=== PATIENT | female | born 1965 | race African-American/Black ===

== ENCOUNTER 2020-02-16 10:53 | Inpatient (IN) | payer OTHER ==
[2020-02-16] MEDS ORDERED: PNEUMOC 13-VAL CONJ-DIP CRM/PF 0.5 ML DISP.SYRIN IM ONE (12:19)
[2020-02-16] MEDS ORDERED: LOPERAMIDE HCL 2 MG CAPSULE PO PRN (12:35)
[2020-02-16] MEDS ORDERED: ACETAMINOPHEN 325 MG TABLET (FP) PO PRN (12:35)
[2020-02-16] MEDS ORDERED: guaiFENesin 200 MG/10 ML 10 ML UNIT-DOSE CUPS PO PRN (12:35)
[2020-02-16] MEDS ORDERED: MAGNESIUM CITRATE 300 ML BOTTLE PO PRN (12:35)
[2020-02-16] MEDS ORDERED: hydrOXYzine PAMOATE 25 MG CAPSULE (FP) PO PRN (12:35)
[2020-02-16] MEDS ORDERED: P-EPHED 60MG/TRIPROLIDI 2.5MG TABLET PO PRN (12:35)
[2020-02-16] MEDS ORDERED: MENTHOL/PHENOL 1 EACH UD MM PRN (12:35)
[2020-02-16] MEDS ORDERED: MAGNESIUM HYDROX 2400MG/30ML ORAL SUSPENSION 30 ML CUP PO PRN (12:35)
[2020-02-16] MEDS: METHOCARBAMOL 500 MG TABLET PO SCH ×3 (15:00→21:37)
[2020-02-16] MEDS ORDERED: INSULIN (NOVOLOG) ASPART 100 UNITS/ML 10ML VIAL ONE (16:31)
[2020-02-16] MEDS: INSULIN SLIDING SCALE (NOVOLOG) 1 VIAL SQ SCH (16:48)
[2020-02-16] MEDS: MELATONIN 5 MG TABLETS PO SCH (21:36)
[2020-02-16] MEDS: FLUTICASONE PROP 0.05% 16 GM NASAL SPRAY NS SCH (21:36)
[2020-02-16] MEDS: THIAMINE HCL 100 MG TABLET (FP) PO SCH (21:36)
[2020-02-16] MEDS: traZODone HCL 50 MG TABLET (FP) PO SCH (21:38)
[2020-02-17] MEDS: METHADONE HCL 10 MG TABLET PO SCH (07:05)
[2020-02-17] MEDS: INSULIN SLIDING SCALE (NOVOLOG) 1 VIAL SQ SCH ×2 (07:06→16:46)
[2020-02-17] MEDS: metFORMIN HCL 500 MG TABLET (FP) PO SCH (07:06)
[2020-02-17] MEDS: NICOTINE POLACRILEX 2 MG GUM BUC PRN (09:07)
[2020-02-17] MEDS: PANTOPRAZOLE 20 MG TABLET PO SCH (10:08)
[2020-02-17] MEDS: FLUTICASONE PROP 0.05% 16 GM NASAL SPRAY NS SCH ×2 (10:08→21:36)
[2020-02-17] MEDS: PRENATAL VITAMINS W/ FOLIC ACID TABLET (FP) PO SCH (10:08)
[2020-02-17] MEDS: NICOTINE 14 MG/24 HOURS TOPICAL PATCH TD SCH (10:09)
[2020-02-17] MEDS: CARVEDILOL 6.25 MG TABLET (FP) PO SCH (10:09)
[2020-02-17] MEDS: amLODIPine BESYLATE 5 MG TABLET (FP) PO SCH (10:09)
[2020-02-17] MEDS: METHOCARBAMOL 500 MG TABLET PO SCH ×4 (10:09→21:36)
[2020-02-17] MEDS: PETROLATUM, WHITE 30 GM TUBE TP SCH (10:11)
[2020-02-17] MEDS ORDERED: METHADONE HCL 10 MG TABLET PO ONE (11:30)
[2020-02-17] MEDS ORDERED: FLU VACCINE (FLULAVAL) PF 60 MCG/0.5 ML SYRINGE 2020-2021 IM ONE (12:00)
[2020-02-17] MEDS ORDERED: PNEUMOCOCCAL 23 VACCINE 0.5 ML VIAL IM ONE (12:00)
[2020-02-17] MEDS ORDERED: INSULIN (NOVOLOG) ASPART 100 UNITS/ML 10ML VIAL ONE (16:39)
[2020-02-17] MEDS: traZODone HCL 50 MG TABLET (FP) PO SCH (21:36)
[2020-02-17] MEDS: MELATONIN 5 MG TABLETS PO SCH (21:36)
[2020-02-17] MEDS: THIAMINE HCL 100 MG TABLET (FP) PO SCH (21:37)
[2020-02-18] MEDS: metFORMIN HCL 500 MG TABLET (FP) PO SCH (07:06)
[2020-02-18] MEDS: INSULIN SLIDING SCALE (NOVOLOG) 1 VIAL SQ SCH ×2 (07:06→16:50)
[2020-02-18] MEDS: METHADONE HCL 10 MG TABLET PO SCH (08:18)
[2020-02-18] MEDS ORDERED: PT OWN MED DRAWER 7, Y5N ONE ×2 (09:12→22:00)
[2020-02-18] MEDS: PRENATAL VITAMINS W/ FOLIC ACID TABLET (FP) PO SCH (10:22)
[2020-02-18] MEDS: PANTOPRAZOLE 20 MG TABLET PO SCH (10:22)
[2020-02-18] MEDS: METHOCARBAMOL 500 MG TABLET PO SCH ×4 (10:22→21:55)
[2020-02-18] MEDS: FLUTICASONE PROP 0.05% 16 GM NASAL SPRAY NS SCH ×2 (10:22→22:01)
[2020-02-18] MEDS: CARVEDILOL 6.25 MG TABLET (FP) PO SCH (10:23)
[2020-02-18] MEDS: NICOTINE 14 MG/24 HOURS TOPICAL PATCH TD SCH (10:23)
[2020-02-18] MEDS: PETROLATUM, WHITE 30 GM TUBE TP SCH (10:24)
[2020-02-18] MEDS: amLODIPine BESYLATE 5 MG TABLET (FP) PO SCH (10:24)
[2020-02-18] MEDS: NICOTINE POLACRILEX 2 MG GUM BUC PRN ×3 (10:25→22:04)
[2020-02-18] MEDS: THIAMINE HCL 100 MG TABLET (FP) PO SCH (21:55)
[2020-02-18] MEDS: traZODone HCL 50 MG TABLET (FP) PO SCH (21:55)
[2020-02-18] MEDS: MELATONIN 5 MG TABLETS PO SCH (22:01)
[2020-02-19] MEDS: metFORMIN HCL 500 MG TABLET (FP) PO SCH (07:06)
[2020-02-19] MEDS: INSULIN SLIDING SCALE (NOVOLOG) 1 VIAL SQ SCH ×2 (07:10→17:03)
[2020-02-19] MEDS: METHADONE HCL 10 MG TABLET PO SCH (07:18)
[2020-02-19] MEDS: NICOTINE POLACRILEX 2 MG GUM BUC PRN ×2 (07:49→10:13)
[2020-02-19] MEDS ORDERED: PT OWN MED DRAWER 7, Y5N ONE (08:52)
[2020-02-19] MEDS: METHOCARBAMOL 500 MG TABLET PO SCH ×4 (09:45→21:40)
[2020-02-19] MEDS: PETROLATUM, WHITE 30 GM TUBE TP SCH (09:45)
[2020-02-19] MEDS: PANTOPRAZOLE 20 MG TABLET PO SCH (09:45)
[2020-02-19] MEDS: PRENATAL VITAMINS W/ FOLIC ACID TABLET (FP) PO SCH (09:45)
[2020-02-19] MEDS: FLUTICASONE PROP 0.05% 16 GM NASAL SPRAY NS SCH ×2 (09:46→21:39)
[2020-02-19] MEDS: amLODIPine BESYLATE 5 MG TABLET (FP) PO SCH (09:46)
[2020-02-19] MEDS: NICOTINE 14 MG/24 HOURS TOPICAL PATCH TD SCH (09:46)
[2020-02-19] MEDS: CARVEDILOL 6.25 MG TABLET (FP) PO SCH (09:46)
[2020-02-19] MEDS: traZODone HCL 50 MG TABLET (FP) PO SCH (21:39)
[2020-02-19] MEDS: MELATONIN 5 MG TABLETS PO SCH (21:40)
[2020-02-19] MEDS: THIAMINE HCL 100 MG TABLET (FP) PO SCH (21:40)
[2020-02-20] MEDS: METHADONE HCL 10 MG TABLET PO SCH (06:51)
[2020-02-20] MEDS: metFORMIN HCL 500 MG TABLET (FP) PO SCH (06:53)
[2020-02-20] MEDS: INSULIN SLIDING SCALE (NOVOLOG) 1 VIAL SQ SCH ×2 (06:53→17:02)
[2020-02-20] MEDS: NICOTINE POLACRILEX 2 MG GUM BUC PRN ×3 (06:58→13:46)
[2020-02-20] MEDS: FLUTICASONE PROP 0.05% 16 GM NASAL SPRAY NS SCH ×2 (09:55→21:37)
[2020-02-20] MEDS: PANTOPRAZOLE 20 MG TABLET PO SCH (09:56)
[2020-02-20] MEDS: amLODIPine BESYLATE 5 MG TABLET (FP) PO SCH (09:56)
[2020-02-20] MEDS: METHOCARBAMOL 500 MG TABLET PO SCH ×4 (09:58→21:38)
[2020-02-20] MEDS: PRENATAL VITAMINS W/ FOLIC ACID TABLET (FP) PO SCH (09:58)
[2020-02-20] MEDS: NICOTINE 14 MG/24 HOURS TOPICAL PATCH TD SCH (09:59)
[2020-02-20] MEDS: CARVEDILOL 6.25 MG TABLET (FP) PO SCH (09:59)
[2020-02-20] MEDS: PETROLATUM, WHITE 30 GM TUBE TP SCH (10:01)
[2020-02-20] MEDS ORDERED: MASKS NR ONE (17:10)
[2020-02-20] MEDS: MELATONIN 5 MG TABLETS PO SCH (21:36)
[2020-02-20] MEDS: THIAMINE HCL 100 MG TABLET (FP) PO SCH (21:36)
[2020-02-20] MEDS: traZODone HCL 50 MG TABLET (FP) PO SCH (21:37)
[2020-02-21] MEDS: INSULIN SLIDING SCALE (NOVOLOG) 1 VIAL SQ SCH ×2 (06:39→16:54)
[2020-02-21] MEDS: metFORMIN HCL 500 MG TABLET (FP) PO SCH (06:39)
[2020-02-21] MEDS: METHADONE HCL 10 MG TABLET PO SCH (06:41)
[2020-02-21] MEDS: NICOTINE POLACRILEX 2 MG GUM BUC PRN ×4 (06:42→18:21)
[2020-02-21] MEDS ORDERED: PT OWN MED DRAWER 7, Y5N ONE (08:41)
[2020-02-21] MEDS: amLODIPine BESYLATE 5 MG TABLET (FP) PO SCH (09:35)
[2020-02-21] MEDS: PRENATAL VITAMINS W/ FOLIC ACID TABLET (FP) PO SCH (09:35)
[2020-02-21] MEDS: METHOCARBAMOL 500 MG TABLET PO SCH ×4 (09:35→21:27)
[2020-02-21] MEDS: PANTOPRAZOLE 20 MG TABLET PO SCH (09:35)
[2020-02-21] MEDS: CARVEDILOL 6.25 MG TABLET (FP) PO SCH (09:35)
[2020-02-21] MEDS: PETROLATUM, WHITE 30 GM TUBE TP SCH (09:36)
[2020-02-21] MEDS: NICOTINE 14 MG/24 HOURS TOPICAL PATCH TD SCH (09:36)
[2020-02-21] MEDS: FLUTICASONE PROP 0.05% 16 GM NASAL SPRAY NS SCH ×2 (09:36→21:27)
[2020-02-21] MEDS: THIAMINE HCL 100 MG TABLET (FP) PO SCH (21:27)
[2020-02-21] MEDS: MELATONIN 5 MG TABLETS PO SCH (21:27)
[2020-02-21] MEDS: traZODone HCL 50 MG TABLET (FP) PO SCH (21:28)
[2020-02-22] MEDS: NICOTINE POLACRILEX 2 MG GUM BUC PRN ×3 (01:39→09:59)
[2020-02-22] MEDS: METHADONE HCL 10 MG TABLET PO SCH (06:55)
[2020-02-22] MEDS: INSULIN SLIDING SCALE (NOVOLOG) 1 VIAL SQ SCH ×2 (06:56→16:45)
[2020-02-22] MEDS: metFORMIN HCL 500 MG TABLET (FP) PO SCH (06:56)
[2020-02-22] MEDS ORDERED: PT OWN MED DRAWER 7, Y5N ONE ×3 (09:01→19:14)
[2020-02-22] MEDS: PANTOPRAZOLE 20 MG TABLET PO SCH (09:57)
[2020-02-22] MEDS: FLUTICASONE PROP 0.05% 16 GM NASAL SPRAY NS SCH ×2 (09:57→21:35)
[2020-02-22] MEDS: amLODIPine BESYLATE 5 MG TABLET (FP) PO SCH (09:57)
[2020-02-22] MEDS: METHOCARBAMOL 500 MG TABLET PO SCH (09:57)
[2020-02-22] MEDS: NICOTINE 14 MG/24 HOURS TOPICAL PATCH TD SCH (09:57)
[2020-02-22] MEDS: PRENATAL VITAMINS W/ FOLIC ACID TABLET (FP) PO SCH (09:57)
[2020-02-22] MEDS: CARVEDILOL 6.25 MG TABLET (FP) PO SCH (09:57)
[2020-02-22] MEDS: PETROLATUM, WHITE 30 GM TUBE TP SCH (12:04)
[2020-02-22] MEDS: NICOTINE POLACRILEX 4 MG GUM BUC PRN ×3 (12:47→21:35)
[2020-02-22] MEDS: MELATONIN 5 MG TABLETS PO SCH (21:33)
[2020-02-22] MEDS: traZODone HCL 50 MG TABLET (FP) PO SCH (21:33)
[2020-02-22] MEDS: THIAMINE HCL 100 MG TABLET (FP) PO SCH (21:33)
[2020-02-23] MEDS ORDERED: METHADONE HCL 10 MG TABLET PO SCH (06:00)
[2020-02-23] MEDS: METHADONE HCL 10 MG TABLET PO SCH (07:03)
[2020-02-23] MEDS: INSULIN SLIDING SCALE (NOVOLOG) 1 VIAL SQ SCH ×2 (07:03→16:32)
[2020-02-23] MEDS: metFORMIN HCL 500 MG TABLET (FP) PO SCH (07:03)
[2020-02-23] MEDS: NICOTINE POLACRILEX 4 MG GUM BUC PRN ×4 (07:04→16:32)
[2020-02-23] MEDS: FLUTICASONE PROP 0.05% 16 GM NASAL SPRAY NS SCH ×2 (09:29→21:08)
[2020-02-23] MEDS: amLODIPine BESYLATE 5 MG TABLET (FP) PO SCH (09:29)
[2020-02-23] MEDS: PETROLATUM, WHITE 30 GM TUBE TP SCH (09:29)
[2020-02-23] MEDS: NICOTINE 14 MG/24 HOURS TOPICAL PATCH TD SCH (09:30)
[2020-02-23] MEDS: PANTOPRAZOLE 20 MG TABLET PO SCH (09:31)
[2020-02-23] MEDS: PRENATAL VITAMINS W/ FOLIC ACID TABLET (FP) PO SCH (09:31)
[2020-02-23] MEDS: CARVEDILOL 6.25 MG TABLET (FP) PO SCH (09:31)
[2020-02-23] MEDS: THIAMINE HCL 100 MG TABLET (FP) PO SCH (21:06)
[2020-02-23] MEDS: MELATONIN 5 MG TABLETS PO SCH (21:07)
[2020-02-23] MEDS: traZODone HCL 50 MG TABLET (FP) PO SCH (21:08)
[2020-02-24] MEDS: METHADONE HCL 10 MG TABLET PO SCH (06:43)
[2020-02-24] MEDS: metFORMIN HCL 500 MG TABLET (FP) PO SCH (06:46)
[2020-02-24] MEDS: INSULIN SLIDING SCALE (NOVOLOG) 1 VIAL SQ SCH ×2 (06:46→16:49)
[2020-02-24] MEDS ORDERED: PT OWN MED DRAWER 7, Y5N ONE ×3 (08:55→10:58)
[2020-02-24] MEDS: CARVEDILOL 6.25 MG TABLET (FP) PO SCH (09:53)
[2020-02-24] MEDS: FLUTICASONE PROP 0.05% 16 GM NASAL SPRAY NS SCH ×2 (09:53→21:17)
[2020-02-24] MEDS: PRENATAL VITAMINS W/ FOLIC ACID TABLET (FP) PO SCH (09:54)
[2020-02-24] MEDS: NICOTINE 14 MG/24 HOURS TOPICAL PATCH TD SCH (09:54)
[2020-02-24] MEDS: PETROLATUM, WHITE 30 GM TUBE TP SCH (09:54)
[2020-02-24] MEDS: amLODIPine BESYLATE 5 MG TABLET (FP) PO SCH (09:54)
[2020-02-24] MEDS: PANTOPRAZOLE 20 MG TABLET PO SCH (09:54)
[2020-02-24] MEDS: NICOTINE POLACRILEX 4 MG GUM BUC PRN ×2 (09:55→13:29)
[2020-02-24] MEDS: THIAMINE HCL 100 MG TABLET (FP) PO SCH (21:16)
[2020-02-24] MEDS: MELATONIN 5 MG TABLETS PO SCH (21:16)
[2020-02-24] MEDS: traZODone HCL 50 MG TABLET (FP) PO SCH (21:16)
[2020-02-24] MEDS ORDERED: MASKS NR ONE (21:18)
[2020-02-24] MEDS ORDERED: INSULIN (NOVOLOG) ASPART 100 UNITS/ML 10ML VIAL ONE (21:38)
[2020-02-25] MEDS: METHADONE HCL 10 MG TABLET PO SCH (06:59)
[2020-02-25] MEDS: INSULIN SLIDING SCALE (NOVOLOG) 1 VIAL SQ SCH ×2 (07:01→16:34)
[2020-02-25] MEDS: metFORMIN HCL 500 MG TABLET (FP) PO SCH (07:01)
[2020-02-25] MEDS: PRENATAL VITAMINS W/ FOLIC ACID TABLET (FP) PO SCH (09:44)
[2020-02-25] MEDS: amLODIPine BESYLATE 5 MG TABLET (FP) PO SCH (09:44)
[2020-02-25] MEDS: NICOTINE 14 MG/24 HOURS TOPICAL PATCH TD SCH (09:44)
[2020-02-25] MEDS: PANTOPRAZOLE 20 MG TABLET PO SCH (09:44)
[2020-02-25] MEDS: CARVEDILOL 6.25 MG TABLET (FP) PO SCH (09:44)
[2020-02-25] MEDS: PETROLATUM, WHITE 30 GM TUBE TP SCH (09:44)
[2020-02-25] MEDS: FLUTICASONE PROP 0.05% 16 GM NASAL SPRAY NS SCH ×2 (09:46→21:31)
[2020-02-25] MEDS: NICOTINE POLACRILEX 4 MG GUM BUC PRN ×2 (09:48→12:56)
[2020-02-25] MEDS ORDERED: MASKS NR ONE (19:54)
[2020-02-25] MEDS: MELATONIN 5 MG TABLETS PO SCH (21:30)
[2020-02-25] MEDS: THIAMINE HCL 100 MG TABLET (FP) PO SCH (21:30)
[2020-02-25] MEDS: traZODone HCL 50 MG TABLET (FP) PO SCH (21:31)
[2020-02-26] MEDS: INSULIN SLIDING SCALE (NOVOLOG) 1 VIAL SQ SCH ×2 (06:51→16:45)
[2020-02-26] MEDS: metFORMIN HCL 500 MG TABLET (FP) PO SCH (06:51)
[2020-02-26] MEDS: METHADONE HCL 10 MG TABLET PO SCH (06:52)
[2020-02-26] MEDS: PANTOPRAZOLE 20 MG TABLET PO SCH (09:38)
[2020-02-26] MEDS: amLODIPine BESYLATE 5 MG TABLET (FP) PO SCH (09:38)
[2020-02-26] MEDS: PRENATAL VITAMINS W/ FOLIC ACID TABLET (FP) PO SCH (09:38)
[2020-02-26] MEDS: FLUTICASONE PROP 0.05% 16 GM NASAL SPRAY NS SCH ×2 (09:38→21:02)
[2020-02-26] MEDS: CARVEDILOL 6.25 MG TABLET (FP) PO SCH (09:38)
[2020-02-26] MEDS: NICOTINE POLACRILEX 4 MG GUM BUC PRN ×4 (09:39→21:08)
[2020-02-26] MEDS: NICOTINE 14 MG/24 HOURS TOPICAL PATCH TD SCH (09:39)
[2020-02-26] MEDS: IBUPROFEN 400 MG TABLET (FP) PO PRN (14:50)
[2020-02-26] MEDS ORDERED: PT OWN MED DRAWER 7, Y5N ONE (19:16)
[2020-02-26] MEDS: traZODone HCL 50 MG TABLET (FP) PO SCH (21:03)
[2020-02-26] MEDS: MELATONIN 5 MG TABLETS PO SCH (21:03)
[2020-02-26] MEDS: THIAMINE HCL 100 MG TABLET (FP) PO SCH (21:04)
[2020-02-26] MEDS: METHOCARBAMOL 500 MG TABLET PO PRN (21:06)
[2020-02-27] MEDS: METHADONE HCL 10 MG TABLET PO SCH (06:56)
[2020-02-27] MEDS: INSULIN SLIDING SCALE (NOVOLOG) 1 VIAL SQ SCH ×2 (06:57→16:33)
[2020-02-27] MEDS: metFORMIN HCL 500 MG TABLET (FP) PO SCH (06:57)
[2020-02-27] MEDS: FLUTICASONE PROP 0.05% 16 GM NASAL SPRAY NS SCH ×2 (10:02→21:27)
[2020-02-27] MEDS: NICOTINE 14 MG/24 HOURS TOPICAL PATCH TD SCH (10:02)
[2020-02-27] MEDS: amLODIPine BESYLATE 5 MG TABLET (FP) PO SCH (10:02)
[2020-02-27] MEDS: PANTOPRAZOLE 20 MG TABLET PO SCH (10:02)
[2020-02-27] MEDS: CARVEDILOL 6.25 MG TABLET (FP) PO SCH (10:02)
[2020-02-27] MEDS: PRENATAL VITAMINS W/ FOLIC ACID TABLET (FP) PO SCH (10:02)
[2020-02-27] MEDS: NICOTINE POLACRILEX 4 MG GUM BUC PRN ×4 (10:05→21:29)
[2020-02-27] MEDS: METHOCARBAMOL 500 MG TABLET PO PRN (18:08)
[2020-02-27] MEDS: IBUPROFEN 400 MG TABLET (FP) PO PRN (18:08)
[2020-02-27] MEDS: traZODone HCL 50 MG TABLET (FP) PO SCH (21:27)
[2020-02-27] MEDS: MELATONIN 5 MG TABLETS PO SCH (21:28)
[2020-02-27] MEDS: THIAMINE HCL 100 MG TABLET (FP) PO SCH (21:28)
[2020-02-28] MEDS: metFORMIN HCL 500 MG TABLET (FP) PO SCH (07:12)
[2020-02-28] MEDS: METHADONE HCL 10 MG TABLET PO SCH (07:12)
[2020-02-28] MEDS: INSULIN SLIDING SCALE (NOVOLOG) 1 VIAL SQ SCH ×2 (07:12→16:45)
[2020-02-28] MEDS: NICOTINE POLACRILEX 4 MG GUM BUC PRN ×3 (07:13→12:52)
[2020-02-28] MEDS: NICOTINE 14 MG/24 HOURS TOPICAL PATCH TD SCH (09:55)
[2020-02-28] MEDS: amLODIPine BESYLATE 5 MG TABLET (FP) PO SCH (09:55)
[2020-02-28] MEDS: CARVEDILOL 6.25 MG TABLET (FP) PO SCH (09:55)
[2020-02-28] MEDS: PRENATAL VITAMINS W/ FOLIC ACID TABLET (FP) PO SCH (09:55)
[2020-02-28] MEDS: PANTOPRAZOLE 20 MG TABLET PO SCH (09:55)
[2020-02-28] MEDS: FLUTICASONE PROP 0.05% 16 GM NASAL SPRAY NS SCH ×2 (10:14→21:12)
[2020-02-28] MEDS ORDERED: PNEUMOC 13-VAL CONJ-DIP CRM/PF 0.5 ML DISP.SYRIN IM ONE (10:51)
[2020-02-28] MEDS ORDERED: FLU VACCINE (FLULAVAL) PF 60 MCG/0.5 ML SYRINGE 2020-2021 IM ONE (12:00)
[2020-02-28] MEDS ORDERED: PNEUMOCOCCAL 23 VACCINE 0.5 ML VIAL IM ONE (12:00)
[2020-02-28] MEDS: THIAMINE HCL 100 MG TABLET (FP) PO SCH (21:11)
[2020-02-28] MEDS: MELATONIN 5 MG TABLETS PO SCH (21:11)
[2020-02-28] MEDS: traZODone HCL 50 MG TABLET (FP) PO SCH (21:12)
[2020-02-28] MEDS ORDERED: INSULIN (NOVOLOG) ASPART 100 UNITS/ML 10ML VIAL ONE (21:59)
[2020-02-29] MEDS: METHADONE HCL 10 MG TABLET PO SCH (07:02)
[2020-02-29] MEDS: metFORMIN HCL 500 MG TABLET (FP) PO SCH (07:04)
[2020-02-29] MEDS: INSULIN SLIDING SCALE (NOVOLOG) 1 VIAL SQ SCH ×2 (07:04→16:49)
[2020-02-29] MEDS: NICOTINE POLACRILEX 4 MG GUM BUC PRN ×3 (07:08→15:26)
[2020-02-29] MEDS ORDERED: PT OWN MED DRAWER 7, Y5N ONE ×3 (09:24→15:25)
[2020-02-29] MEDS: amLODIPine BESYLATE 5 MG TABLET (FP) PO SCH (10:14)
[2020-02-29] MEDS: CARVEDILOL 6.25 MG TABLET (FP) PO SCH (10:14)
[2020-02-29] MEDS: PANTOPRAZOLE 20 MG TABLET PO SCH (10:14)
[2020-02-29] MEDS: PRENATAL VITAMINS W/ FOLIC ACID TABLET (FP) PO SCH (10:14)
[2020-02-29] MEDS: NICOTINE 14 MG/24 HOURS TOPICAL PATCH TD SCH (10:14)
[2020-02-29] MEDS: FLUTICASONE PROP 0.05% 16 GM NASAL SPRAY NS SCH ×2 (10:17→21:40)
[2020-02-29] MEDS: VITAMINS A AND D TOPICAL OINTMENT 60 GM TUBE TP SCH (11:10)
[2020-02-29] MEDS: MAG HYDROX/AL HYDROX/SIMETH 30 ML UNIT-DOSE CUP PO PRN ×2 (15:25→21:41)
[2020-02-29] MEDS: MELATONIN 5 MG TABLETS PO SCH (21:39)
[2020-02-29] MEDS: THIAMINE HCL 100 MG TABLET (FP) PO SCH (21:39)
[2020-02-29] MEDS: traZODone HCL 50 MG TABLET (FP) PO SCH (21:39)
[2020-03-01] MEDS: NICOTINE POLACRILEX 4 MG GUM BUC PRN ×2 (02:41→06:58)
[2020-03-01] MEDS: metFORMIN HCL 500 MG TABLET (FP) PO SCH (06:56)
[2020-03-01] MEDS: INSULIN SLIDING SCALE (NOVOLOG) 1 VIAL SQ SCH (06:57)
[2020-03-01] MEDS: METHADONE HCL 10 MG TABLET PO SCH (06:57)
[2020-03-01 07:06] VITALS: TEMP 97.7
[2020-03-01] MEDS: amLODIPine BESYLATE 5 MG TABLET (FP) PO SCH (09:05)
[2020-03-01] MEDS: CARVEDILOL 6.25 MG TABLET (FP) PO SCH (09:05)
[2020-03-01] MEDS: FLUTICASONE PROP 0.05% 16 GM NASAL SPRAY NS SCH (09:05)
[2020-03-01] MEDS: PANTOPRAZOLE 20 MG TABLET PO SCH (09:05)
[2020-03-01] MEDS: VITAMINS A AND D TOPICAL OINTMENT 60 GM TUBE TP SCH (09:06)
[2020-03-01] MEDS: NICOTINE 14 MG/24 HOURS TOPICAL PATCH TD SCH (09:06)
[2020-03-01] MEDS: PRENATAL VITAMINS W/ FOLIC ACID TABLET (FP) PO SCH (09:06)
[2020-03-01 09:11] VITALS: BP 130/81; PULSE 68
== END 2020-03-01 09:25 | disposition home or self-care (01) | DRG 772 ==
LOC: YASAS 10:53 → Y3E 10:56
PROVIDERS: ADMIT Allergy & Immunology; ATTEND Allergy & Immunology
PROC: HZ42ZZZ Group Counseling for Substance Abuse Treatment, Cognitive-Behavioral (ICD-10-PCS; principal; 2020-02-16)
DX: F10.20 Alcohol dependence, uncomplicated (principal); F14.20 Cocaine dependence, uncomplicated; F11.20 Opioid dependence, uncomplicated; F12.20 Cannabis dependence, uncomplicated; F17.210 Nicotine dependence, cigarettes, uncomplicated; F19.24 Other psychoactive substance dependence with psychoactive substance-induced mood disorder; F32.9 Major depressive disorder, single episode, unspecified; G47.00 Insomnia, unspecified; I10 Essential (primary) hypertension; I25.2 Old myocardial infarction; I69.854 Hemiplegia and hemiparesis following other cerebrovascular disease affecting left non-dominant side; I69.898 Other sequelae of other cerebrovascular disease; R26.89 Other abnormalities of gait and mobility; E11.9 Type 2 diabetes mellitus without complications; Z79.84 Long term (current) use of oral hypoglycemic drugs; Z87.820 Personal history of traumatic brain injury; Z91.81 History of falling; Z99.89 Dependence on other enabling machines and devices; R29.6 Repeated falls; Z56.0 Unemployment, unspecified; Z59.0 Homelessness; Z91.14 Patient's other noncompliance with medication regimen; S09.90XA Unspecified injury of head, initial encounter; W18.39XA Other fall on same level, initial encounter; Y93.89 Activity, other specified; Y92.231 Patient bathroom in hospital as the place of occurrence of the external cause; Y99.8 Other external cause status
CPT/HCPCS: 36415; 82962; 87389; G0008; Q2036

== ENCOUNTER 2020-02-16 23:54 | Emergency (ER) | payer OTHER ==
[2020-02-17 00:10] VITALS: TEMP 97.3; BMI 24.2
--- OUTSIDE RECORDS SUMMARY | 2020-02-17 00:14 | XMS ---
:1965 Author Organization [facility] Support Name Relationship Address Phone UE, UNEMPLOYED Unavailable Unavailable Unavailable UE Unavailable Unavailable Unavailable SARAH CHRIS SELF / SAME PATIENT HOMELESS [place] [id number] SARAH CHRIS Self [place] [address] Re-disclosure Warning The records that you are about to access may contain information from federally- assisted alcohol or drug abuse programs. If such information is present, then the following federally mandated warning applies: This information has been disclosed to you from records protected by federal confidentiality rules (42 CFR part 2). The federal rules prohibit you from making any further disclosure of this information unless further disclosure is expressly permitted by the written consent of the person to whom it pertains or as otherwise permitted by 42 CFR part 2. A general authorization for the release of medical or other information is NOT sufficient for this purpose. The Federal rules restrict any use of the information to criminally investigate or prosecute any alcohol or drug abuse patient.The records that you are about to access may contain highly sensitive health information, the redisclosure of which is protected by Article 27-F of the [facility] Public Health law. If you continue you may haveaccess to information: Regarding HIV / AIDS; Provided by facilities licensed or operated by the [facility] Office of Mental Health; or Provided by the [facility] Office for People With Developmental Disabilities. If such information is present, then the following [facility] mandated warning applies: This information has been disclosed to you from confidential records which are protected by state law. State law prohibits you from making any further disclosure of this information without the specific written consent of the person to whom it pertains, or as otherwise permitted by law. Any unauthorized further disclosure in violation of state law may result in a fine or detention sentence or both. A general authorization for the release of medical or other information is NOT sufficient authorization for further disclosure. Insurance Providers Payer name Policy type Policy ID Covered Covered democrat's Policy P nu / Coverage democrat ID relationship to [employer] type ferrari LISBETH [id number] HEALTH NON CAP Results ID Date Data Source [id number] 02/11/2020 06:20:00 PM EDT [facility] Name Value Range Interpretation Description Data Sup porting Code Source(s) Document(s ) SARS [facility] coronavirus 2 RNA This lab was ordered by [facility] ct [facility] and reported by [facility]. ID Date Data Source [id number] 12/23/2019 12:00:00 AM EDT [facility] Name Value Range Interpretation Code Description Data Quiana rce(s) Supporting Document(s ) 2019-nCoV [facility] RNA XXX LOLITA+probe- Imp This lab was ordered by [facility] and reported by [employer] Procedure
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
--- NOTE | 2020-02-17 01:56 | PDOC ---
History of Present Illness - General Chief Complaint: Head/Neck problem Stated Complaint: FALL Time Seen by Provider: 02/17/20 00:27 History Source: Patient - History of Present Illness Initial Comments: 54F w/hx CVA w/residual L sided deficits, HTN, DM, polysubstance use disorder (cocaine, alcohol) in detox BIBEMS from [facility] s/p unwitnessed fall in the bathroom. History limited by intoxication. She denies any drug or alcohol use today. Per detox center, she received trazodone and methadone today. She is admitted at the detox center. She denies any head or neck pain, reports low back pain. She reports neck stiffness. Past History - Medical History Allergies/Adverse Reactions: Allergies Allergy/AdvReac Type Severity Reaction Status Date / Time No Known Allergies Allergy Verified 02/11/20 17:19 Home Medications: Ambulatory Orders Amlodipine Besylate [Norvasc -] 5 mg PO DAILY 02/11/20 Carvedilol [Coreg -] 6.25 mg PO DAILY 02/11/20 Mirtazapine [Remeron -] 15 mg PO HS 02/11/20 Omeprazole 40 mg PO DAILY 02/11/20 metFORMIN HCL [Glucophage -] 500 mg PO DAILY 02/11/20 Methadone HCl [Dolophine HCl] 30 mg PO DAILY 02/16/20 Pantoprazole Sodium [Protonix -] 20 mg PO DAILY 02/16/20 Asthma: No Cardiac Disorders: No COPD: Yes Diabetes: Yes GI Disorders: No Disorders: No HTN: No Kidney Stones: No - Surgical History Abdominal Surgery: No Appendectomy: No Cardiac Surgery: No Cholecystectomy: No Lung Surgery: No Neurologic Surgery: No Orthopedic Surgery: No - Reproductive History PID: No - Psycho-Social/Smoking History Smoking History: Unknown if ever smoked Have you smoked in the past 12 months: Yes Number of Cigarettes Smoked Daily: 20 - Substance Abuse Hx (Audit-C & DAST Scrn) How often the patient has a drink containing alcohol: 2-3 times / week Number of drinks the patient has on a typical day: 5 or 6 How often the patient has six or more drinks on one occasion: Weekly Score: In Men: 4 or > Positive; In Women: 3 or > Positive: 8 Screen Result (Pos requires Nsg. Audit-10AR): Positive In the last yr the pt used illegal drug/Rx for NonMed reason: Yes Score: Yes response is considered Positive: 1 Screen Result (Positive result requires Nsg. DAST-10): Positive Review of Systems - Review of Systems Able to Perform ROS?: No (intox) *Physical Exam - Vital Signs Last Vital Signs Temp Pulse Resp BP Pulse Ox 97.3 F L 60 18 112/65 95 02/17/20 00:04 02/17/20 00:04 02/17/20 00:04 02/17/20 00:04 02/17/20 00:04 - Physical Exam 02/17/20 01:57 GENERAL/CONSTITUTIONAL: No fever or chills. No weakness. HEAD, EYES, EARS, NOSE AND THROAT: No change in vision. No ear pain or discharge. No sore throat. CARDIOVASCULAR: No chest pain or shortness of breath RESPIRATORY: No cough, wheezing, or hemoptysis. GASTROINTESTINAL: No nausea, vomiting, diarrhea or constipation. GENITOURINARY: No dysuria, frequency, or change in urination. MUSCULOSKELETAL: No joint or muscle swelling or pain. No neck or back pain. SKIN: No rash NEUROLOGIC: No headache, vertigo, loss of consciousness, or change in strength/sensation. ENDOCRINE: No increased thirst. No abnormal weight change HEMATOLOGIC/LYMPHATIC: No anemia, easy bleeding, or history of blood clots. ALLERGIC/IMMUNOLOGIC: No hives or skin allergy. Medical Decision Making - Medical Decision Making 54F w/hx residual L sided weakness s/p CVA, HTN, DM, polysubstance use disorder BIBEMS s/p fall in bath room after methadone, trazodone dose at detox. Ddx medication effect vs other intox. ICH possible although AMS more likely represents medication effect. Plan: CT Head CT cervical spine XR lumbar spine [facility] Dispo: Discharge pending imaging 02/17/20 01:50 On reassessment, no midline cervical tenderness, patient able to fully flex and extend and rotate head left and right without pain. Cervical collar removed. CT Head and CT cervical spine negative for acute process No fracture visualized on spinal XR Plan for discharge back to detox. Discussed with ELAN Aldana, plan for transport back to [facility]. Discharge - Discharge Information Problems reviewed: Yes Clinical Impression/Diagnosis: Fall Condition: Stable Disposition: HOME - Admission No - Follow up/Referral - Patient Discharge Instructions Patient Printed Discharge Instructions: How to Prevent Falls Additional Instructions: You were seen in the ER after a fall. Your CT scans and X-rays were normal. Follow up with your primary care provider as soon as possible, in the next 2-3 days. Return to the ER if you develop worsening headache, vision changes, or intractable vomiting. - Post Discharge Activity
[2020-02-17 03:40] VITALS: BP 104/70; PULSE 59
== END 2020-02-17 03:48 | disposition home or self-care (01) ==
LOC: JER 23:54
PROC: 3E0234Z Introduction of Serum, Toxoid and Vaccine into Muscle, Percutaneous Approach (ICD-10-PCS; principal; 2020-02-16)
DX: Z04.3 Encounter for examination and observation following other accident (principal)
CPT/HCPCS: 70450-TC; 72100-TC-FY; 72125-TC; 99284-25

== ENCOUNTER 2021-06-29 20:36 | Emergency (ER) | payer OTHER ==
[2021-06-29 20:43] VITALS: BP 153/97; PULSE 89; TEMP 98; BMI 20.9
[2021-06-29] MEDS ORDERED: IBUPROFEN 600 MG TABLET (FP) PO ONE ×2 (20:51→21:15)
== END 2021-06-29 22:45 | disposition home or self-care (01) ==
LOC: JERFT 20:36
DX: S93.491A Sprain of other ligament of right ankle, initial encounter (principal); X50.0XXA Overexertion from strenuous movement or load, initial encounter
CPT/HCPCS: 73610-TC-RT-FY; 73630-TC-RT-FY; 99283-25

== ENCOUNTER 2021-06-29 22:35 | Inpatient (IN) | payer OTHER ==
[2021-06-29 17:40] VITALS: BMI 20.9
[2021-06-29] MEDS ORDERED: LOPERAMIDE HCL 2 MG CAPSULE PO PRN (22:58)
[2021-06-29] MEDS ORDERED: MAG HYDROX/AL HYDROX/SIMETH 30 ML UNIT-DOSE CUP PO PRN (22:58)
[2021-06-29] MEDS ORDERED: MAGNESIUM HYDROX 2400MG/30ML ORAL SUSPENSION 30 ML CUP PO PRN (22:58)
[2021-06-29] MEDS ORDERED: ACETAMINOPHEN 325 MG TABLET (FP) PO PRN ×2 (22:58)
[2021-06-29] MEDS ORDERED: guaiFENesin 200 MG/10 ML 10 ML UNIT-DOSE CUPS PO PRN (22:58)
[2021-06-29] MEDS ORDERED: MENTHOL/PHENOL 1 EACH UD MM PRN (22:58)
[2021-06-29] MEDS ORDERED: ONDANSETRON *ODT* 4 MG TABLET SL PRN (22:58)
[2021-06-29] MEDS ORDERED: P-EPHED 60MG/TRIPROLIDI 2.5MG TABLET PO PRN (22:58)
[2021-06-29] MEDS ORDERED: MAGNESIUM CITRATE 300 ML BOTTLE PO PRN (22:58)
[2021-06-29] MEDS ORDERED: BISMUTH SUBSALICYLATE 524 MG/30 ML PO PRN (22:58)
[2021-06-29] MEDS ORDERED: methaDONE HCL 10 MG TABLET (FOR DETOX USE ONLY) PO ONE ×2 (23:02→23:15)
[2021-06-29] MEDS ORDERED: cloNIDine HCL 0.1 MG TABLET PO PRN (23:02)
[2021-06-29] MEDS ORDERED: methaDONE HCL 10 MG TABLET (FOR DETOX USE ONLY) ONE (23:59)
[2021-06-30] MEDS: MELATONIN 5 MG TABLETS PO PRN (00:03)
[2021-06-30] MEDS ORDERED: methaDONE HCL 10 MG TABLET (FOR DETOX USE ONLY) PO ONE (10:00)
[2021-06-30] MEDS ORDERED: amLODIPine BESYLATE 5 MG TABLET (FP) ONE (10:20)
[2021-06-30] MEDS ORDERED: methaDONE HCL 10 MG TABLET (FOR DETOX USE ONLY) ONE (10:20)
[2021-06-30] MEDS: amLODIPine BESYLATE 5 MG TABLET (FP) PO SCH (10:35)
[2021-06-30] MEDS: PRENATAL VITAMINS W/ FOLIC ACID TABLET (FP) PO SCH (10:35)
[2021-06-30 11:39] LABS: HEMATOCRIT 37.2 % (32.4-45.2); HEMOGLOBIN 12.3 GM/dL (10.7-15.3); MCH 24.2 pg (25.7-33.7); MEAN CELL VOLUME 73.2 fl (80-96); MEAN PLT VOLUME 8.3 fl (7.5-11.1); PLATELET COUNT 182 10^3/uL (134-434); RBC 5.09 M/mm3 (3.60-5.2); RDW 15.7 % (11.6-15.6); WHITE BLOOD COUNT 5.4 K/mm3 (4.0-10.0)
[2021-06-30 12:44] LABS: ALBUMIN 3.3 g/dl (3.4-5.0); BLOOD UREA NITROGEN 13.8 mg/dL (7-18); CALCIUM 9.1 mg/dL (8.5-10.1)
[2021-06-30 12:47] LABS: CREATININE 0.9 mg/dL (0.55-1.3)
[2021-06-30 12:48] LABS: TOT PROT 6.1 g/dl (6.4-8.2)
[2021-06-30] MEDS: NICOTINE POLACRILEX 2 MG GUM BUC PRN ×3 (12:51→22:28)
[2021-06-30 12:52] LABS: BILIRUBIN,TOTAL 0.5 mg/dL (0.2-1)
[2021-06-30] MEDS: hydrOXYzine PAMOATE 25 MG CAPSULE (FP) PO PRN ×3 (14:09→22:26)
[2021-06-30] MEDS: METHOCARBAMOL 500 MG TABLET PO PRN ×2 (14:09→22:26)
[2021-06-30] MEDS: diazePAM 5 MG TABLET PO PRN (18:15)
[2021-06-30] MEDS: THIAMINE HCL 100 MG TABLET (FP) PO SCH (22:26)
[2021-07-01] MEDS ORDERED: methaDONE HCL 10 MG TABLET (FOR DETOX USE ONLY) PO ONE (10:00)
[2021-07-01] MEDS: PRENATAL VITAMINS W/ FOLIC ACID TABLET (FP) PO SCH (10:36)
[2021-07-01] MEDS: hydrOXYzine PAMOATE 25 MG CAPSULE (FP) PO PRN ×3 (10:37→22:33)
[2021-07-01] MEDS: amLODIPine BESYLATE 5 MG TABLET (FP) PO SCH (10:37)
[2021-07-01] MEDS: METHOCARBAMOL 500 MG TABLET PO PRN (10:37)
[2021-07-01] MEDS: diazePAM 5 MG TABLET PO PRN ×3 (10:38→22:34)
[2021-07-01] MEDS: IBUPROFEN 400 MG TABLET (FP) PO PRN ×2 (10:39→18:02)
[2021-07-01] MEDS: NICOTINE POLACRILEX 2 MG GUM BUC PRN (10:43)
[2021-07-01] MEDS: MELATONIN 5 MG TABLETS PO PRN (22:34)
[2021-07-01] MEDS: THIAMINE HCL 100 MG TABLET (FP) PO SCH (22:34)
[2021-07-02] MEDS ORDERED: methaDONE HCL 10 MG TABLET (FOR DETOX USE ONLY) PO ONE (10:00)
[2021-07-02] MEDS: PRENATAL VITAMINS W/ FOLIC ACID TABLET (FP) PO SCH (10:42)
[2021-07-02] MEDS: amLODIPine BESYLATE 5 MG TABLET (FP) PO SCH (10:42)
[2021-07-02] MEDS: diazePAM 5 MG TABLET PO PRN (10:44)
[2021-07-02] MEDS ORDERED: NICOTINE 10 MG CARTRIDGE (INHALER) IH PRN (14:13)
[2021-07-02 17:45] VITALS: BP 129/77; PULSE 77; TEMP 97
[2021-07-04 08:07] LABS: SARS-CoV-2 NAA Not Detected (Not Detected)
== END 2021-07-02 18:56 | disposition other institution (70) | DRG 773 ==
LOC: YASAS 22:35 → Y6N 06-30 10:12
PROVIDERS: ADMIT Allergy & Immunology; ATTEND Allergy & Immunology
PROC: HZ2ZZZZ Detoxification Services for Substance Abuse Treatment (ICD-10-PCS; principal; 2021-06-30)
DX: F11.23 Opioid dependence with withdrawal (principal); F10.20 Alcohol dependence, uncomplicated; F14.20 Cocaine dependence, uncomplicated; F12.20 Cannabis dependence, uncomplicated; F17.210 Nicotine dependence, cigarettes, uncomplicated; F19.24 Other psychoactive substance dependence with psychoactive substance-induced mood disorder; F32.A Depression, unspecified; I25.10 Atherosclerotic heart disease of native coronary artery without angina pectoris; I10 Essential (primary) hypertension; I25.2 Old myocardial infarction; I69.854 Hemiplegia and hemiparesis following other cerebrovascular disease affecting left non-dominant side; K21.9 Gastro-esophageal reflux disease without esophagitis; J44.9 Chronic obstructive pulmonary disease, unspecified; D57.3 Sickle-cell trait; Z87.820 Personal history of traumatic brain injury; Z86.19 Personal history of other infectious and parasitic diseases; Z99.89 Dependence on other enabling machines and devices; Z91.14 Patient's other noncompliance with medication regimen; Z59.00 Homelessness unspecified
CPT/HCPCS: 36415; 80053; 82962; 85027; 86593; 86780; C9803-CS; U0003; U0005

== ENCOUNTER 2021-07-02 19:29 | Inpatient (IN) | payer OTHER ==
[~2021-07-02 19:29] MED LIST: LOPERAMIDE HCL 2 MG CAPSULE PO PRN; MAG HYDROX/AL HYDROX/SIMETH 30 ML UNIT-DOSE CUP PO PRN; MAGNESIUM CITRATE 300 ML BOTTLE PO PRN; MAGNESIUM HYDROX 2400MG/30ML ORAL SUSPENSION 30 ML CUP PO PRN; P-EPHED 60MG/TRIPROLIDI 2.5MG TABLET PO PRN; guaiFENesin 200 MG/10 ML 10 ML UNIT-DOSE CUPS PO PRN
[2021-07-02] MEDS: MELATONIN 5 MG TABLETS PO SCH (21:36)
[2021-07-02] MEDS: THIAMINE HCL 100 MG TABLET (FP) PO SCH (21:36)
[2021-07-02] MEDS: hydrOXYzine PAMOATE 25 MG CAPSULE (FP) PO SCH ×3 (21:36→23:52)
[2021-07-02] MEDS: IBUPROFEN 400 MG TABLET (FP) PO PRN (21:37)
[2021-07-02] MEDS: NICOTINE 10 MG CARTRIDGE (INHALER) IH PRN (21:39)
[2021-07-02] MEDS ORDERED: PNEUMOC 13-VAL CONJ-DIP CRM/PF 0.5 ML DISP.SYRIN IM ONE (21:45)
[2021-07-03] MEDS: hydrOXYzine PAMOATE 25 MG CAPSULE (FP) PO SCH ×2 (06:21→10:13)
[2021-07-03] MEDS: PRENATAL VITAMINS W/ FOLIC ACID TABLET (FP) PO SCH (10:13)
[2021-07-03] MEDS: NICOTINE 7 MG/24 HOURS TOPICAL PATCH TD SCH (10:14)
[2021-07-03] MEDS: NICOTINE POLACRILEX 2 MG GUM BUC PRN ×4 (10:15→21:48)
[2021-07-03 10:55] LABS: HIV INTERPRETATION NEGATIVE (NEGATIVE)
[2021-07-03] MEDS ORDERED: ONDANSETRON *ODT* 4 MG TABLET SL PRN (11:12)
[2021-07-03] MEDS: METHOCARBAMOL 500 MG TABLET PO PRN (11:57)
[2021-07-03] MEDS: cloNIDine HCL 0.1 MG TABLET PO PRN (11:57)
[2021-07-03] MEDS ORDERED: PNEUMOC 13-VAL CONJ-DIP CRM/PF 0.5 ML DISP.SYRIN IM ONE (12:00)
[2021-07-03] MEDS ORDERED: PNEUMOCOCCAL 23 VACCINE 0.5 ML VIAL IM ONE (12:00)
[2021-07-03] MEDS: FLUTICASONE PROP 0.05% 16 GM NASAL SPRAY NS SCH ×2 (12:03→21:46)
[2021-07-03] MEDS: THIAMINE HCL 100 MG TABLET (FP) PO SCH (21:42)
[2021-07-03] MEDS: MELATONIN 5 MG TABLETS PO SCH (21:42)
[2021-07-03] MEDS: IBUPROFEN 400 MG TABLET (FP) PO PRN (21:46)
[2021-07-04] MEDS: NICOTINE POLACRILEX 2 MG GUM BUC PRN ×4 (07:07→21:29)
[2021-07-04] MEDS: NICOTINE 7 MG/24 HOURS TOPICAL PATCH TD SCH (10:28)
[2021-07-04] MEDS: cloNIDine HCL 0.1 MG TABLET PO PRN (10:28)
[2021-07-04] MEDS: hydrOXYzine PAMOATE 25 MG CAPSULE (FP) PO PRN ×2 (10:28→21:28)
[2021-07-04] MEDS: PRENATAL VITAMINS W/ FOLIC ACID TABLET (FP) PO SCH (10:28)
[2021-07-04] MEDS: FLUTICASONE PROP 0.05% 16 GM NASAL SPRAY NS SCH ×2 (10:28→21:28)
[2021-07-04] MEDS: METHOCARBAMOL 500 MG TABLET PO PRN ×2 (10:29→21:28)
[2021-07-04] MEDS: ACETAMINOPHEN 325 MG TABLET (FP) PO PRN (10:30)
[2021-07-04] MEDS: NICOTINE 10 MG CARTRIDGE (INHALER) IH PRN ×3 (10:31→21:29)
[2021-07-04] MEDS: MELATONIN 5 MG TABLETS PO SCH (21:28)
[2021-07-04] MEDS: THIAMINE HCL 100 MG TABLET (FP) PO SCH (21:28)
[2021-07-05] MEDS: PRENATAL VITAMINS W/ FOLIC ACID TABLET (FP) PO SCH (10:47)
[2021-07-05] MEDS: NICOTINE 7 MG/24 HOURS TOPICAL PATCH TD SCH (10:47)
[2021-07-05] MEDS: NICOTINE 10 MG CARTRIDGE (INHALER) IH PRN ×3 (10:47→21:44)
[2021-07-05] MEDS: NICOTINE POLACRILEX 2 MG GUM BUC PRN ×3 (10:48→18:46)
[2021-07-05] MEDS: FLUTICASONE PROP 0.05% 16 GM NASAL SPRAY NS SCH ×2 (10:48→21:43)
[2021-07-05] MEDS: hydrOXYzine PAMOATE 25 MG CAPSULE (FP) PO PRN ×2 (10:49→21:43)
[2021-07-05] MEDS ORDERED: amLODIPine BESYLATE 5 MG TABLET (FP) PO ONE (16:27)
[2021-07-05] MEDS ORDERED: HYDROCHLOROTHIAZIDE 25 MG TABLET (FP) PO ONE (16:29)
[2021-07-05] MEDS: THIAMINE HCL 100 MG TABLET (FP) PO SCH (21:42)
[2021-07-05] MEDS: METHOCARBAMOL 500 MG TABLET PO PRN (21:43)
[2021-07-05] MEDS: MELATONIN 5 MG TABLETS PO SCH (21:43)
[2021-07-06 10:07] LABS: SARS-CoV-2 NAA Not Detected (Not Detected)
[2021-07-06] MEDS: NICOTINE 7 MG/24 HOURS TOPICAL PATCH TD SCH (10:26)
[2021-07-06] MEDS: PRENATAL VITAMINS W/ FOLIC ACID TABLET (FP) PO SCH (10:26)
[2021-07-06] MEDS: amLODIPine BESYLATE 5 MG TABLET (FP) PO SCH (10:27)
[2021-07-06] MEDS: FLUTICASONE PROP 0.05% 16 GM NASAL SPRAY NS SCH (10:27)
[2021-07-06] MEDS: HYDROCHLOROTHIAZIDE 25 MG TABLET (FP) PO SCH (10:27)
[2021-07-06] MEDS: METHOCARBAMOL 500 MG TABLET PO PRN ×2 (10:28→21:46)
[2021-07-06] MEDS: ACETAMINOPHEN 325 MG TABLET (FP) PO PRN ×2 (10:28→21:46)
[2021-07-06] MEDS: NICOTINE 10 MG CARTRIDGE (INHALER) IH PRN ×2 (10:29→21:48)
[2021-07-06] MEDS: NICOTINE POLACRILEX 2 MG GUM BUC PRN ×2 (10:29→16:07)
[2021-07-06] MEDS: BUPRENORPHINE/NALOXONE 4 MG/1 MG FILM PACKET SL SCH (16:05)
[2021-07-06] MEDS: THIAMINE HCL 100 MG TABLET (FP) PO SCH (21:46)
[2021-07-06] MEDS: CARVEDILOL 6.25 MG TABLET (FP) PO SCH (21:46)
[2021-07-06] MEDS: MELATONIN 5 MG TABLETS PO SCH (21:47)
[2021-07-06] MEDS: hydrOXYzine PAMOATE 25 MG CAPSULE (FP) PO PRN (21:47)
[2021-07-07] MEDS: IBUPROFEN 400 MG TABLET (FP) PO PRN (06:08)
[2021-07-07] MEDS: METHOCARBAMOL 500 MG TABLET PO PRN (06:09)
[2021-07-07] MEDS: NICOTINE 10 MG CARTRIDGE (INHALER) IH PRN ×2 (06:09→19:18)
[2021-07-07] MEDS: NICOTINE POLACRILEX 2 MG GUM BUC PRN ×4 (06:10→21:38)
[2021-07-07] MEDS: PRENATAL VITAMINS W/ FOLIC ACID TABLET (FP) PO SCH (10:19)
[2021-07-07] MEDS: BUPRENORPHINE/NALOXONE 4 MG/1 MG FILM PACKET SL SCH (10:19)
[2021-07-07] MEDS: HYDROCHLOROTHIAZIDE 25 MG TABLET (FP) PO SCH ×2 (10:20→14:20)
[2021-07-07] MEDS: NICOTINE 7 MG/24 HOURS TOPICAL PATCH TD SCH (10:20)
[2021-07-07] MEDS: CARVEDILOL 6.25 MG TABLET (FP) PO SCH ×2 (14:17→21:37)
[2021-07-07] MEDS: amLODIPine BESYLATE 5 MG TABLET (FP) PO SCH (14:18)
[2021-07-07] MEDS: MELATONIN 5 MG TABLETS PO SCH (21:37)
[2021-07-07] MEDS: THIAMINE HCL 100 MG TABLET (FP) PO SCH (21:37)
[2021-07-08] MEDS: amLODIPine BESYLATE 5 MG TABLET (FP) PO SCH (10:36)
[2021-07-08] MEDS: HYDROCHLOROTHIAZIDE 25 MG TABLET (FP) PO SCH (10:36)
[2021-07-08] MEDS: PRENATAL VITAMINS W/ FOLIC ACID TABLET (FP) PO SCH (10:36)
[2021-07-08] MEDS: NICOTINE 10 MG CARTRIDGE (INHALER) IH PRN ×2 (10:36→20:24)
[2021-07-08] MEDS: NICOTINE 7 MG/24 HOURS TOPICAL PATCH TD SCH (10:37)
[2021-07-08] MEDS: NICOTINE POLACRILEX 2 MG GUM BUC PRN ×3 (10:37→20:25)
[2021-07-08] MEDS: BUPRENORPHINE/NALOXONE 4 MG/1 MG FILM PACKET SL SCH (10:37)
[2021-07-08] MEDS: CARVEDILOL 6.25 MG TABLET (FP) PO SCH ×2 (10:37→21:17)
[2021-07-08] MEDS: METHOCARBAMOL 500 MG TABLET PO PRN ×2 (10:38→21:17)
[2021-07-08] MEDS: MELATONIN 5 MG TABLETS PO SCH (21:17)
[2021-07-08] MEDS: THIAMINE HCL 100 MG TABLET (FP) PO SCH (21:17)
[2021-07-09] MEDS: METHOCARBAMOL 500 MG TABLET PO PRN ×2 (06:12→21:32)
[2021-07-09] MEDS: HYDROCHLOROTHIAZIDE 25 MG TABLET (FP) PO SCH (10:41)
[2021-07-09] MEDS: CARVEDILOL 6.25 MG TABLET (FP) PO SCH ×2 (10:41→21:32)
[2021-07-09] MEDS: NICOTINE 7 MG/24 HOURS TOPICAL PATCH TD SCH (10:41)
[2021-07-09] MEDS: PRENATAL VITAMINS W/ FOLIC ACID TABLET (FP) PO SCH (10:41)
[2021-07-09] MEDS: amLODIPine BESYLATE 5 MG TABLET (FP) PO SCH (10:41)
[2021-07-09] MEDS: NICOTINE 10 MG CARTRIDGE (INHALER) IH PRN ×2 (10:42→21:33)
[2021-07-09] MEDS: NICOTINE POLACRILEX 2 MG GUM BUC PRN ×4 (10:42→22:39)
[2021-07-09] MEDS: BUPRENORPHINE/NALOXONE 4 MG/1 MG FILM PACKET SL SCH (10:42)
[2021-07-09] MEDS: hydrOXYzine PAMOATE 25 MG CAPSULE (FP) PO PRN (21:32)
[2021-07-09] MEDS: MELATONIN 5 MG TABLETS PO SCH (21:32)
[2021-07-09] MEDS: THIAMINE HCL 100 MG TABLET (FP) PO SCH (21:32)
[2021-07-10] MEDS: NICOTINE POLACRILEX 2 MG GUM BUC PRN ×3 (08:58→15:46)
[2021-07-10] MEDS: NICOTINE 10 MG CARTRIDGE (INHALER) IH PRN ×3 (08:58→20:33)
[2021-07-10] MEDS ORDERED: BUPRENORPHINE/NALOXONE 2 MG/0.5 MG FILM PACKET SL ONE (09:18)
[2021-07-10] MEDS: PRENATAL VITAMINS W/ FOLIC ACID TABLET (FP) PO SCH (10:30)
[2021-07-10] MEDS: HYDROCHLOROTHIAZIDE 25 MG TABLET (FP) PO SCH (10:31)
[2021-07-10] MEDS: NICOTINE 7 MG/24 HOURS TOPICAL PATCH TD SCH (10:31)
[2021-07-10] MEDS: BUPRENORPHINE/NALOXONE 4 MG/1 MG FILM PACKET SL SCH (10:31)
[2021-07-10] MEDS: amLODIPine BESYLATE 5 MG TABLET (FP) PO SCH (10:31)
[2021-07-10] MEDS: CARVEDILOL 6.25 MG TABLET (FP) PO SCH ×2 (10:31→21:35)
[2021-07-10] MEDS: METHOCARBAMOL 500 MG TABLET PO PRN ×2 (10:32→21:35)
[2021-07-10] MEDS ORDERED: TUBERCULIN PPD 5 TU/0.1ML VIAL ID ONE (11:28)
[2021-07-10] MEDS: hydrOXYzine PAMOATE 25 MG CAPSULE (FP) PO PRN (21:35)
[2021-07-10] MEDS: THIAMINE HCL 100 MG TABLET (FP) PO SCH (21:35)
[2021-07-10] MEDS: ACETAMINOPHEN 325 MG TABLET (FP) PO PRN (21:35)
[2021-07-10] MEDS: MELATONIN 5 MG TABLETS PO SCH (22:56)
[2021-07-11] MEDS: NICOTINE POLACRILEX 2 MG GUM BUC PRN ×4 (06:16→17:10)
[2021-07-11] MEDS: amLODIPine BESYLATE 5 MG TABLET (FP) PO SCH (10:50)
[2021-07-11] MEDS: HYDROCHLOROTHIAZIDE 25 MG TABLET (FP) PO SCH (10:50)
[2021-07-11] MEDS: METHOCARBAMOL 500 MG TABLET PO PRN (10:50)
[2021-07-11] MEDS: PRENATAL VITAMINS W/ FOLIC ACID TABLET (FP) PO SCH (10:50)
[2021-07-11] MEDS: CARVEDILOL 6.25 MG TABLET (FP) PO SCH ×2 (10:50→21:45)
[2021-07-11] MEDS: NICOTINE 7 MG/24 HOURS TOPICAL PATCH TD SCH (10:51)
[2021-07-11] MEDS: BUPRENORPHINE/NALOXONE 4 MG/1 MG FILM PACKET SL SCH (10:53)
[2021-07-11] MEDS ORDERED: BUPRENORPHINE/NALOXONE 4 MG/1 MG FILM PACKET SL ONE (10:56)
[2021-07-11] MEDS: NICOTINE 10 MG CARTRIDGE (INHALER) IH PRN ×2 (14:21→21:47)
[2021-07-11] MEDS: THIAMINE HCL 100 MG TABLET (FP) PO SCH (21:44)
[2021-07-11] MEDS: MELATONIN 5 MG TABLETS PO SCH ×2 (21:44→21:47)
[2021-07-11] MEDS: hydrOXYzine PAMOATE 25 MG CAPSULE (FP) PO PRN (21:45)
[2021-07-11] MEDS: IBUPROFEN 400 MG TABLET (FP) PO PRN (21:45)
[2021-07-12] MEDS: NICOTINE 7 MG/24 HOURS TOPICAL PATCH TD SCH (10:40)
[2021-07-12] MEDS: amLODIPine BESYLATE 5 MG TABLET (FP) PO SCH (10:40)
[2021-07-12] MEDS: HYDROCHLOROTHIAZIDE 25 MG TABLET (FP) PO SCH (10:40)
[2021-07-12] MEDS: PRENATAL VITAMINS W/ FOLIC ACID TABLET (FP) PO SCH (10:40)
[2021-07-12] MEDS: METHOCARBAMOL 500 MG TABLET PO PRN ×2 (10:40→21:32)
[2021-07-12] MEDS: hydrOXYzine PAMOATE 25 MG CAPSULE (FP) PO PRN ×2 (10:40→21:32)
[2021-07-12] MEDS: BUPRENORPHINE/NALOXONE 8 MG/2 MG FILM PACKET SL SCH (10:40)
[2021-07-12] MEDS: CARVEDILOL 6.25 MG TABLET (FP) PO SCH ×2 (10:42→21:32)
[2021-07-12] MEDS: NICOTINE POLACRILEX 2 MG GUM BUC PRN ×2 (10:48→14:07)
[2021-07-12] MEDS: MINERAL OIL/PETROLAT/WATER TOPICAL CREAM 113 GM JAR TP SCH (11:08)
[2021-07-12] MEDS: COLLOIDAL OATMEAL 1 BAR EACH TP PRN (14:06)
[2021-07-12] MEDS: NICOTINE 10 MG CARTRIDGE (INHALER) IH PRN ×2 (14:07→22:27)
[2021-07-12] MEDS: THIAMINE HCL 100 MG TABLET (FP) PO SCH (21:32)
[2021-07-12] MEDS: MELATONIN 5 MG TABLETS PO SCH (21:32)
[2021-07-12] MEDS: NICOTINE POLACRILEX 4 MG GUM BUC PRN (21:33)
[2021-07-13] MEDS: NICOTINE POLACRILEX 4 MG GUM BUC PRN ×2 (06:34→10:36)
[2021-07-13] MEDS: BUPRENORPHINE/NALOXONE 8 MG/2 MG FILM PACKET SL SCH (10:31)
[2021-07-13] MEDS: MINERAL OIL/PETROLAT/WATER TOPICAL CREAM 113 GM JAR TP SCH (10:32)
[2021-07-13] MEDS: NICOTINE 7 MG/24 HOURS TOPICAL PATCH TD SCH (10:32)
[2021-07-13] MEDS: PRENATAL VITAMINS W/ FOLIC ACID TABLET (FP) PO SCH (10:34)
[2021-07-13] MEDS: METHOCARBAMOL 500 MG TABLET PO PRN ×2 (10:35→21:35)
[2021-07-13] MEDS: HYDROCHLOROTHIAZIDE 25 MG TABLET (FP) PO SCH (11:31)
[2021-07-13] MEDS: CARVEDILOL 6.25 MG TABLET (FP) PO SCH ×2 (11:31→21:37)
[2021-07-13] MEDS: amLODIPine BESYLATE 5 MG TABLET (FP) PO SCH (11:31)
[2021-07-13] MEDS: NICOTINE 10 MG CARTRIDGE (INHALER) IH PRN (12:36)
[2021-07-13] MEDS: THIAMINE HCL 100 MG TABLET (FP) PO SCH (21:35)
[2021-07-13] MEDS: hydrOXYzine PAMOATE 25 MG CAPSULE (FP) PO PRN (21:36)
[2021-07-13] MEDS: MELATONIN 5 MG TABLETS PO SCH (21:37)
[2021-07-14] MEDS: NICOTINE POLACRILEX 4 MG GUM BUC PRN ×3 (06:49→19:31)
[2021-07-14] MEDS: NICOTINE 10 MG CARTRIDGE (INHALER) IH PRN ×2 (08:40→15:07)
[2021-07-14] MEDS: PRENATAL VITAMINS W/ FOLIC ACID TABLET (FP) PO SCH (10:45)
[2021-07-14] MEDS: MINERAL OIL/PETROLAT/WATER TOPICAL CREAM 113 GM JAR TP SCH (10:46)
[2021-07-14] MEDS: HYDROCHLOROTHIAZIDE 25 MG TABLET (FP) PO SCH (10:46)
[2021-07-14] MEDS: CARVEDILOL 6.25 MG TABLET (FP) PO SCH ×2 (10:46→21:29)
[2021-07-14] MEDS: NICOTINE 7 MG/24 HOURS TOPICAL PATCH TD SCH (10:46)
[2021-07-14] MEDS: METHOCARBAMOL 500 MG TABLET PO PRN ×2 (10:47→21:29)
[2021-07-14] MEDS: BUPRENORPHINE/NALOXONE 8 MG/2 MG FILM PACKET SL SCH (10:47)
[2021-07-14] MEDS: amLODIPine BESYLATE 5 MG TABLET (FP) PO SCH (10:47)
[2021-07-14] MEDS: MELATONIN 5 MG TABLETS PO SCH (21:29)
[2021-07-14] MEDS: hydrOXYzine PAMOATE 25 MG CAPSULE (FP) PO PRN (21:29)
[2021-07-14] MEDS: THIAMINE HCL 100 MG TABLET (FP) PO SCH (21:29)
[2021-07-15] MEDS: NICOTINE POLACRILEX 4 MG GUM BUC PRN ×5 (05:57→21:42)
[2021-07-15] MEDS: amLODIPine BESYLATE 5 MG TABLET (FP) PO SCH (10:24)
[2021-07-15] MEDS: NICOTINE 7 MG/24 HOURS TOPICAL PATCH TD SCH (10:24)
[2021-07-15] MEDS: CARVEDILOL 6.25 MG TABLET (FP) PO SCH ×2 (10:24→21:40)
[2021-07-15] MEDS: METHOCARBAMOL 500 MG TABLET PO PRN ×2 (10:24→21:40)
[2021-07-15] MEDS: HYDROCHLOROTHIAZIDE 25 MG TABLET (FP) PO SCH (10:24)
[2021-07-15] MEDS: PRENATAL VITAMINS W/ FOLIC ACID TABLET (FP) PO SCH (10:24)
[2021-07-15] MEDS: BUPRENORPHINE/NALOXONE 8 MG/2 MG FILM PACKET SL SCH (10:24)
[2021-07-15] MEDS: MINERAL OIL/PETROLAT/WATER TOPICAL CREAM 113 GM JAR TP SCH (10:25)
[2021-07-15] MEDS: NICOTINE 10 MG CARTRIDGE (INHALER) IH PRN ×3 (10:26→21:42)
[2021-07-15] MEDS: MELATONIN 5 MG TABLETS PO SCH (21:40)
[2021-07-15] MEDS: SUVOREXANT 10 MG TABLET PO PRN (21:41)
[2021-07-15] MEDS: THIAMINE HCL 100 MG TABLET (FP) PO SCH (21:41)
[2021-07-16] MEDS: PRENATAL VITAMINS W/ FOLIC ACID TABLET (FP) PO SCH (10:28)
[2021-07-16] MEDS: BUPRENORPHINE/NALOXONE 8 MG/2 MG FILM PACKET SL SCH (10:29)
[2021-07-16] MEDS: amLODIPine BESYLATE 5 MG TABLET (FP) PO SCH (10:29)
[2021-07-16] MEDS: HYDROCHLOROTHIAZIDE 25 MG TABLET (FP) PO SCH (10:29)
[2021-07-16] MEDS: CARVEDILOL 6.25 MG TABLET (FP) PO SCH ×2 (10:30→21:28)
[2021-07-16] MEDS: MINERAL OIL/PETROLAT/WATER TOPICAL CREAM 113 GM JAR TP SCH (10:30)
[2021-07-16] MEDS: NICOTINE POLACRILEX 4 MG GUM BUC PRN ×2 (10:31→15:58)
[2021-07-16] MEDS: NICOTINE 7 MG/24 HOURS TOPICAL PATCH TD SCH (10:31)
[2021-07-16] MEDS: NICOTINE 10 MG CARTRIDGE (INHALER) IH PRN ×2 (11:12→21:29)
[2021-07-16] MEDS: METHOCARBAMOL 500 MG TABLET PO PRN ×2 (11:14→21:27)
[2021-07-16] MEDS: THIAMINE HCL 100 MG TABLET (FP) PO SCH (21:28)
[2021-07-16] MEDS: MELATONIN 5 MG TABLETS PO SCH (21:28)
[2021-07-16] MEDS: SUVOREXANT 10 MG TABLET PO PRN (21:30)
[2021-07-17] MEDS: NICOTINE POLACRILEX 4 MG GUM BUC PRN ×3 (07:15→19:21)
[2021-07-17] MEDS: PRENATAL VITAMINS W/ FOLIC ACID TABLET (FP) PO SCH (10:20)
[2021-07-17] MEDS: amLODIPine BESYLATE 5 MG TABLET (FP) PO SCH (10:21)
[2021-07-17] MEDS: MINERAL OIL/PETROLAT/WATER TOPICAL CREAM 113 GM JAR TP SCH (10:21)
[2021-07-17] MEDS: CARVEDILOL 6.25 MG TABLET (FP) PO SCH ×2 (10:21→21:38)
[2021-07-17] MEDS: HYDROCHLOROTHIAZIDE 25 MG TABLET (FP) PO SCH (10:21)
[2021-07-17] MEDS: NICOTINE 7 MG/24 HOURS TOPICAL PATCH TD SCH (10:22)
[2021-07-17] MEDS: BUPRENORPHINE/NALOXONE 8 MG/2 MG FILM PACKET SL SCH (10:22)
[2021-07-17] MEDS: NICOTINE 10 MG CARTRIDGE (INHALER) IH PRN ×2 (10:24→21:31)
[2021-07-17] MEDS: METHOCARBAMOL 500 MG TABLET PO PRN ×2 (10:26→21:25)
[2021-07-17] MEDS: THIAMINE HCL 100 MG TABLET (FP) PO SCH (21:26)
[2021-07-17] MEDS: SUVOREXANT 15 MG TABLET PO PRN (21:28)
[2021-07-18] MEDS: NICOTINE POLACRILEX 4 MG GUM BUC PRN ×4 (06:02→20:40)
[2021-07-18] MEDS: NICOTINE 10 MG CARTRIDGE (INHALER) IH PRN ×2 (06:02→20:39)
[2021-07-18] MEDS: CARVEDILOL 6.25 MG TABLET (FP) PO SCH ×2 (10:36→21:28)
[2021-07-18] MEDS: PRENATAL VITAMINS W/ FOLIC ACID TABLET (FP) PO SCH (10:36)
[2021-07-18] MEDS: amLODIPine BESYLATE 5 MG TABLET (FP) PO SCH (10:37)
[2021-07-18] MEDS: HYDROCHLOROTHIAZIDE 25 MG TABLET (FP) PO SCH (10:37)
[2021-07-18] MEDS: METHOCARBAMOL 500 MG TABLET PO PRN ×2 (10:37→21:26)
[2021-07-18] MEDS: NICOTINE 7 MG/24 HOURS TOPICAL PATCH TD SCH (10:37)
[2021-07-18] MEDS: BUPRENORPHINE/NALOXONE 8 MG/2 MG FILM PACKET SL SCH (10:38)
[2021-07-18] MEDS: MINERAL OIL/PETROLAT/WATER TOPICAL CREAM 113 GM JAR TP SCH (10:38)
[2021-07-18] MEDS: THIAMINE HCL 100 MG TABLET (FP) PO SCH (21:26)
[2021-07-18] MEDS: SUVOREXANT 15 MG TABLET PO PRN (21:28)
[2021-07-19] MEDS: NICOTINE 10 MG CARTRIDGE (INHALER) IH PRN ×3 (05:56→21:34)
[2021-07-19] MEDS: NICOTINE POLACRILEX 4 MG GUM BUC PRN ×5 (05:57→21:36)
[2021-07-19] MEDS: NICOTINE 7 MG/24 HOURS TOPICAL PATCH TD SCH (10:48)
[2021-07-19] MEDS: amLODIPine BESYLATE 5 MG TABLET (FP) PO SCH (10:48)
[2021-07-19] MEDS: HYDROCHLOROTHIAZIDE 25 MG TABLET (FP) PO SCH (10:48)
[2021-07-19] MEDS: BUPRENORPHINE/NALOXONE 8 MG/2 MG FILM PACKET SL SCH (10:48)
[2021-07-19] MEDS: PRENATAL VITAMINS W/ FOLIC ACID TABLET (FP) PO SCH (10:48)
[2021-07-19] MEDS: CARVEDILOL 6.25 MG TABLET (FP) PO SCH ×2 (10:51→21:32)
[2021-07-19] MEDS: MINERAL OIL/PETROLAT/WATER TOPICAL CREAM 113 GM JAR TP SCH (10:51)
[2021-07-19] MEDS: METHOCARBAMOL 500 MG TABLET PO PRN (21:32)
[2021-07-19] MEDS: THIAMINE HCL 100 MG TABLET (FP) PO SCH (21:32)
[2021-07-19] MEDS: SUVOREXANT 15 MG TABLET PO PRN (21:34)
[2021-07-20] MEDS: NICOTINE 10 MG CARTRIDGE (INHALER) IH PRN (06:30)
[2021-07-20] MEDS: NICOTINE POLACRILEX 4 MG GUM BUC PRN ×4 (06:30→21:25)
[2021-07-20] MEDS: SODIUM CHLORIDE NASAL SPRAY 44 ML BOTTLE NS PRN ×2 (10:45→21:23)
[2021-07-20] MEDS: PRENATAL VITAMINS W/ FOLIC ACID TABLET (FP) PO SCH (10:45)
[2021-07-20] MEDS: amLODIPine BESYLATE 5 MG TABLET (FP) PO SCH (10:45)
[2021-07-20] MEDS: CARVEDILOL 6.25 MG TABLET (FP) PO SCH ×2 (10:45→21:23)
[2021-07-20] MEDS: BUPRENORPHINE/NALOXONE 8 MG/2 MG FILM PACKET SL SCH (10:46)
[2021-07-20] MEDS: ACETAMINOPHEN 325 MG TABLET (FP) PO PRN (10:47)
[2021-07-20] MEDS: NICOTINE 7 MG/24 HOURS TOPICAL PATCH TD SCH (10:47)
[2021-07-20] MEDS: MINERAL OIL/PETROLAT/WATER TOPICAL CREAM 113 GM JAR TP SCH (10:49)
[2021-07-20] MEDS: HYDROCHLOROTHIAZIDE 25 MG TABLET (FP) PO SCH (10:49)
[2021-07-20] MEDS: THIAMINE HCL 100 MG TABLET (FP) PO SCH (21:22)
[2021-07-20] MEDS: SUVOREXANT 15 MG TABLET PO PRN (21:22)
[2021-07-21] MEDS: NICOTINE POLACRILEX 4 MG GUM BUC PRN ×2 (06:29→21:51)
[2021-07-21] MEDS: NICOTINE 10 MG CARTRIDGE (INHALER) IH PRN (06:29)
[2021-07-21] MEDS: BUPRENORPHINE/NALOXONE 8 MG/2 MG FILM PACKET SL SCH (10:37)
[2021-07-21] MEDS: HYDROCHLOROTHIAZIDE 25 MG TABLET (FP) PO SCH (10:37)
[2021-07-21] MEDS: amLODIPine BESYLATE 5 MG TABLET (FP) PO SCH (10:37)
[2021-07-21] MEDS: PRENATAL VITAMINS W/ FOLIC ACID TABLET (FP) PO SCH (10:37)
[2021-07-21] MEDS: NICOTINE 7 MG/24 HOURS TOPICAL PATCH TD SCH (10:38)
[2021-07-21] MEDS: SODIUM CHLORIDE NASAL SPRAY 44 ML BOTTLE NS PRN ×2 (10:39→21:51)
[2021-07-21] MEDS: MINERAL OIL/PETROLAT/WATER TOPICAL CREAM 113 GM JAR TP SCH (10:39)
[2021-07-21] MEDS: CARVEDILOL 6.25 MG TABLET (FP) PO SCH ×2 (10:39→23:22)
[2021-07-21] MEDS: THIAMINE HCL 100 MG TABLET (FP) PO SCH (21:47)
[2021-07-21] MEDS: SUVOREXANT 15 MG TABLET PO PRN (21:48)
[2021-07-21] MEDS: METHOCARBAMOL 500 MG TABLET PO PRN (21:49)
[2021-07-22] MEDS: NICOTINE POLACRILEX 4 MG GUM BUC PRN ×2 (05:41→10:10)
[2021-07-22] MEDS: CARVEDILOL 6.25 MG TABLET (FP) PO SCH ×2 (10:08→22:17)
[2021-07-22] MEDS: BUPRENORPHINE/NALOXONE 8 MG/2 MG FILM PACKET SL SCH (10:09)
[2021-07-22] MEDS: amLODIPine BESYLATE 5 MG TABLET (FP) PO SCH (10:09)
[2021-07-22] MEDS: PRENATAL VITAMINS W/ FOLIC ACID TABLET (FP) PO SCH (10:09)
[2021-07-22] MEDS: SODIUM CHLORIDE NASAL SPRAY 44 ML BOTTLE NS PRN (10:09)
[2021-07-22] MEDS: MINERAL OIL/PETROLAT/WATER TOPICAL CREAM 113 GM JAR TP SCH (10:10)
[2021-07-22] MEDS: NICOTINE 7 MG/24 HOURS TOPICAL PATCH TD SCH (10:10)
[2021-07-22] MEDS: HYDROCHLOROTHIAZIDE 25 MG TABLET (FP) PO SCH (10:10)
[2021-07-22] MEDS: NICOTINE 10 MG CARTRIDGE (INHALER) IH PRN ×2 (10:12→21:50)
[2021-07-22] MEDS: THIAMINE HCL 100 MG TABLET (FP) PO SCH (21:48)
[2021-07-22] MEDS: METHOCARBAMOL 500 MG TABLET PO PRN (21:49)
[2021-07-22] MEDS: SUVOREXANT 15 MG TABLET PO PRN (21:50)
[2021-07-23] MEDS: NICOTINE POLACRILEX 4 MG GUM BUC PRN ×4 (07:01→21:35)
[2021-07-23] MEDS: PRENATAL VITAMINS W/ FOLIC ACID TABLET (FP) PO SCH (10:41)
[2021-07-23] MEDS: amLODIPine BESYLATE 5 MG TABLET (FP) PO SCH (10:42)
[2021-07-23] MEDS: CARVEDILOL 6.25 MG TABLET (FP) PO SCH ×2 (10:42→21:35)
[2021-07-23] MEDS: BUPRENORPHINE/NALOXONE 8 MG/2 MG FILM PACKET SL SCH (10:43)
[2021-07-23] MEDS: ACETAMINOPHEN 325 MG TABLET (FP) PO PRN (10:43)
[2021-07-23] MEDS: MINERAL OIL/PETROLAT/WATER TOPICAL CREAM 113 GM JAR TP SCH (10:43)
[2021-07-23] MEDS: NICOTINE 7 MG/24 HOURS TOPICAL PATCH TD SCH (10:43)
[2021-07-23] MEDS: HYDROCHLOROTHIAZIDE 25 MG TABLET (FP) PO SCH (10:44)
[2021-07-23] MEDS: METHOCARBAMOL 500 MG TABLET PO PRN ×2 (16:02→21:35)
[2021-07-23] MEDS: NICOTINE 10 MG CARTRIDGE (INHALER) IH PRN (21:35)
[2021-07-23] MEDS: THIAMINE HCL 100 MG TABLET (FP) PO SCH (21:35)
[2021-07-23] MEDS: hydrOXYzine PAMOATE 25 MG CAPSULE (FP) PO PRN (21:35)
[2021-07-24] MEDS: amLODIPine BESYLATE 5 MG TABLET (FP) PO SCH (10:44)
[2021-07-24] MEDS: PRENATAL VITAMINS W/ FOLIC ACID TABLET (FP) PO SCH (10:44)
[2021-07-24] MEDS: NICOTINE 7 MG/24 HOURS TOPICAL PATCH TD SCH (10:45)
[2021-07-24] MEDS: CARVEDILOL 6.25 MG TABLET (FP) PO SCH ×2 (10:45→21:28)
[2021-07-24] MEDS: MINERAL OIL/PETROLAT/WATER TOPICAL CREAM 113 GM JAR TP SCH (10:45)
[2021-07-24] MEDS: HYDROCHLOROTHIAZIDE 25 MG TABLET (FP) PO SCH (10:45)
[2021-07-24] MEDS: SODIUM CHLORIDE NASAL SPRAY 44 ML BOTTLE NS PRN (10:47)
[2021-07-24] MEDS: NICOTINE 10 MG CARTRIDGE (INHALER) IH PRN ×2 (10:48→21:32)
[2021-07-24] MEDS: NICOTINE POLACRILEX 4 MG GUM BUC PRN ×3 (10:48→19:47)
[2021-07-24] MEDS: BUPRENORPHINE/NALOXONE 8 MG/2 MG FILM PACKET SL SCH (10:49)
[2021-07-24] MEDS: hydrOXYzine PAMOATE 25 MG CAPSULE (FP) PO PRN (21:28)
[2021-07-24] MEDS: THIAMINE HCL 100 MG TABLET (FP) PO SCH (21:28)
[2021-07-24] MEDS: SUVOREXANT 15 MG TABLET PO PRN (21:30)
[2021-07-24] MEDS: METHOCARBAMOL 500 MG TABLET PO PRN (21:31)
[2021-07-25] MEDS: NICOTINE POLACRILEX 4 MG GUM BUC PRN ×5 (06:07→21:39)
[2021-07-25] MEDS: SODIUM CHLORIDE NASAL SPRAY 44 ML BOTTLE NS PRN (10:30)
[2021-07-25] MEDS: PRENATAL VITAMINS W/ FOLIC ACID TABLET (FP) PO SCH (10:30)
[2021-07-25] MEDS: NICOTINE 7 MG/24 HOURS TOPICAL PATCH TD SCH (10:31)
[2021-07-25] MEDS: CARVEDILOL 6.25 MG TABLET (FP) PO SCH ×2 (10:31→21:37)
[2021-07-25] MEDS: BUPRENORPHINE/NALOXONE 8 MG/2 MG FILM PACKET SL SCH (10:31)
[2021-07-25] MEDS: HYDROCHLOROTHIAZIDE 25 MG TABLET (FP) PO SCH (10:31)
[2021-07-25] MEDS: MINERAL OIL/PETROLAT/WATER TOPICAL CREAM 113 GM JAR TP SCH (10:31)
[2021-07-25] MEDS: amLODIPine BESYLATE 5 MG TABLET (FP) PO SCH (10:31)
[2021-07-25] MEDS: NICOTINE 10 MG CARTRIDGE (INHALER) IH PRN ×2 (10:33→21:39)
[2021-07-25] MEDS: THIAMINE HCL 100 MG TABLET (FP) PO SCH (21:35)
[2021-07-25] MEDS: METHOCARBAMOL 500 MG TABLET PO PRN (21:35)
[2021-07-25] MEDS: SUVOREXANT 15 MG TABLET PO PRN (21:38)
[2021-07-25] MEDS: COLLOIDAL OATMEAL 1 BAR EACH TP PRN (22:31)
[2021-07-26] MEDS: NICOTINE POLACRILEX 4 MG GUM BUC PRN ×5 (06:05→21:46)
[2021-07-26] MEDS: amLODIPine BESYLATE 5 MG TABLET (FP) PO SCH (10:48)
[2021-07-26] MEDS: BUPRENORPHINE/NALOXONE 8 MG/2 MG FILM PACKET SL SCH (10:48)
[2021-07-26] MEDS: HYDROCHLOROTHIAZIDE 25 MG TABLET (FP) PO SCH (10:48)
[2021-07-26] MEDS: PRENATAL VITAMINS W/ FOLIC ACID TABLET (FP) PO SCH (10:49)
[2021-07-26] MEDS: CARVEDILOL 6.25 MG TABLET (FP) PO SCH ×2 (10:49→23:13)
[2021-07-26] MEDS: NICOTINE 7 MG/24 HOURS TOPICAL PATCH TD SCH (10:49)
[2021-07-26] MEDS: MINERAL OIL/PETROLAT/WATER TOPICAL CREAM 113 GM JAR TP SCH (10:53)
[2021-07-26] MEDS: NICOTINE 10 MG CARTRIDGE (INHALER) IH PRN (10:54)
[2021-07-26] MEDS: ALBUTEROL SO4 HFA INHALER IH SCH ×2 (13:29→14:00)
[2021-07-26] MEDS: SODIUM CHLORIDE NASAL SPRAY 44 ML BOTTLE NS PRN (13:29)
[2021-07-26] MEDS: THIAMINE HCL 100 MG TABLET (FP) PO SCH (21:43)
[2021-07-26] MEDS: METHOCARBAMOL 500 MG TABLET PO PRN (21:44)
[2021-07-26] MEDS: SUVOREXANT 20 MG TABLET PO PRN (21:44)
[2021-07-27] MEDS: ALBUTEROL SO4 HFA INHALER IH PRN (06:01)
[2021-07-27] MEDS: NICOTINE POLACRILEX 4 MG GUM BUC PRN ×3 (06:04→21:27)
[2021-07-27] MEDS: CARVEDILOL 6.25 MG TABLET (FP) PO SCH ×2 (10:12→21:23)
[2021-07-27] MEDS: BUPRENORPHINE/NALOXONE 8 MG/2 MG FILM PACKET SL SCH (10:12)
[2021-07-27] MEDS: HYDROCHLOROTHIAZIDE 25 MG TABLET (FP) PO SCH (10:13)
[2021-07-27] MEDS: amLODIPine BESYLATE 5 MG TABLET (FP) PO SCH (10:13)
[2021-07-27] MEDS: PRENATAL VITAMINS W/ FOLIC ACID TABLET (FP) PO SCH (10:14)
[2021-07-27] MEDS: NICOTINE 7 MG/24 HOURS TOPICAL PATCH TD SCH (10:16)
[2021-07-27] MEDS: MINERAL OIL/PETROLAT/WATER TOPICAL CREAM 113 GM JAR TP SCH (10:16)
[2021-07-27] MEDS: NICOTINE 10 MG CARTRIDGE (INHALER) IH PRN (18:08)
[2021-07-27] MEDS: METHOCARBAMOL 500 MG TABLET PO PRN (18:11)
[2021-07-27] MEDS: THIAMINE HCL 100 MG TABLET (FP) PO SCH (21:23)
[2021-07-27] MEDS: SUVOREXANT 20 MG TABLET PO PRN (21:25)
[2021-07-28] MEDS: NICOTINE POLACRILEX 4 MG GUM BUC PRN ×2 (06:15→10:54)
[2021-07-28] MEDS: SODIUM CHLORIDE NASAL SPRAY 44 ML BOTTLE NS PRN (10:50)
[2021-07-28] MEDS: BUPRENORPHINE/NALOXONE 8 MG/2 MG FILM PACKET SL SCH (10:51)
[2021-07-28] MEDS: CARVEDILOL 6.25 MG TABLET (FP) PO SCH ×2 (10:51→22:01)
[2021-07-28] MEDS: MINERAL OIL/PETROLAT/WATER TOPICAL CREAM 113 GM JAR TP SCH (10:51)
[2021-07-28] MEDS: HYDROCHLOROTHIAZIDE 25 MG TABLET (FP) PO SCH (10:51)
[2021-07-28] MEDS: amLODIPine BESYLATE 5 MG TABLET (FP) PO SCH (10:51)
[2021-07-28] MEDS: PRENATAL VITAMINS W/ FOLIC ACID TABLET (FP) PO SCH (10:51)
[2021-07-28] MEDS: NICOTINE 7 MG/24 HOURS TOPICAL PATCH TD SCH (10:52)
[2021-07-28] MEDS: NICOTINE 10 MG CARTRIDGE (INHALER) IH PRN (16:12)
[2021-07-28] MEDS: SUVOREXANT 20 MG TABLET PO PRN (22:00)
[2021-07-28] MEDS: THIAMINE HCL 100 MG TABLET (FP) PO SCH (22:01)
[2021-07-28] MEDS: METHOCARBAMOL 500 MG TABLET PO PRN (22:01)
[2021-07-28] MEDS: ALBUTEROL SO4 HFA INHALER IH PRN (22:02)
[2021-07-28] MEDS: hydrOXYzine PAMOATE 25 MG CAPSULE (FP) PO PRN (22:02)
[2021-07-29] MEDS: NICOTINE 10 MG CARTRIDGE (INHALER) IH PRN ×2 (06:30→21:27)
[2021-07-29] MEDS: SODIUM CHLORIDE NASAL SPRAY 44 ML BOTTLE NS PRN ×2 (10:40→21:29)
[2021-07-29] MEDS: CARVEDILOL 6.25 MG TABLET (FP) PO SCH ×2 (10:41→21:29)
[2021-07-29] MEDS: amLODIPine BESYLATE 5 MG TABLET (FP) PO SCH (10:41)
[2021-07-29] MEDS: MINERAL OIL/PETROLAT/WATER TOPICAL CREAM 113 GM JAR TP SCH (10:41)
[2021-07-29] MEDS: BUPRENORPHINE/NALOXONE 8 MG/2 MG FILM PACKET SL SCH (10:41)
[2021-07-29] MEDS: NICOTINE 7 MG/24 HOURS TOPICAL PATCH TD SCH (10:42)
[2021-07-29] MEDS: PRENATAL VITAMINS W/ FOLIC ACID TABLET (FP) PO SCH (10:42)
[2021-07-29] MEDS: HYDROCHLOROTHIAZIDE 25 MG TABLET (FP) PO SCH (10:42)
[2021-07-29] MEDS: ALBUTEROL SO4 HFA INHALER IH PRN ×2 (10:43→21:28)
[2021-07-29] MEDS: NICOTINE POLACRILEX 4 MG GUM BUC PRN (10:44)
[2021-07-29] MEDS: METHOCARBAMOL 500 MG TABLET PO PRN (21:29)
[2021-07-29] MEDS: SUVOREXANT 20 MG TABLET PO PRN (21:29)
[2021-07-29] MEDS: THIAMINE HCL 100 MG TABLET (FP) PO SCH (21:30)
[2021-07-29] MEDS ORDERED: SUVOREXANT 10 MG TABLET PO PRN (22:00)
[2021-07-30] MEDS: NICOTINE POLACRILEX 4 MG GUM BUC PRN ×2 (06:03→10:45)
[2021-07-30 07:24] VITALS: BP 97/59; PULSE 65; TEMP 97.7
[2021-07-30] MEDS: PRENATAL VITAMINS W/ FOLIC ACID TABLET (FP) PO SCH (10:43)
[2021-07-30] MEDS: ALBUTEROL SO4 HFA INHALER IH PRN (10:43)
[2021-07-30] MEDS: CARVEDILOL 6.25 MG TABLET (FP) PO SCH (10:43)
[2021-07-30] MEDS: HYDROCHLOROTHIAZIDE 25 MG TABLET (FP) PO SCH (10:43)
[2021-07-30] MEDS: amLODIPine BESYLATE 5 MG TABLET (FP) PO SCH (10:43)
[2021-07-30] MEDS: NICOTINE 7 MG/24 HOURS TOPICAL PATCH TD SCH (10:44)
[2021-07-30] MEDS: BUPRENORPHINE/NALOXONE 8 MG/2 MG FILM PACKET SL SCH (10:44)
[2021-07-30] MEDS: MINERAL OIL/PETROLAT/WATER TOPICAL CREAM 113 GM JAR TP SCH (10:44)
[2021-07-30] MEDS: COLLOIDAL OATMEAL 1 BAR EACH TP PRN (10:47)
== END 2021-07-30 12:22 | disposition home or self-care (01) | DRG 772 ==
LOC: YASAS 19:29 → Y5N 19:30
PROVIDERS: ADMIT Allergy & Immunology; ATTEND Allergy & Immunology
PROC: HZ42ZZZ Group Counseling for Substance Abuse Treatment, Cognitive-Behavioral (ICD-10-PCS; principal; 2021-07-02)
DX: F11.20 Opioid dependence, uncomplicated (principal); F10.20 Alcohol dependence, uncomplicated; F14.20 Cocaine dependence, uncomplicated; F17.210 Nicotine dependence, cigarettes, uncomplicated; F19.24 Other psychoactive substance dependence with psychoactive substance-induced mood disorder; F32.A Depression, unspecified; D57.3 Sickle-cell trait; I10 Essential (primary) hypertension; J44.9 Chronic obstructive pulmonary disease, unspecified; K21.9 Gastro-esophageal reflux disease without esophagitis; M25.471 Effusion, right ankle; I69.854 Hemiplegia and hemiparesis following other cerebrovascular disease affecting left non-dominant side; Z87.820 Personal history of traumatic brain injury; Z86.19 Personal history of other infectious and parasitic diseases; Z99.89 Dependence on other enabling machines and devices; Z59.00 Homelessness unspecified; S93.401D Sprain of unspecified ligament of right ankle, subsequent encounter; Y09 Assault by unspecified means
CPT/HCPCS: 36415; 82962; 87389; 90732; C9803-CS; G0009; J0735; U0003; U0005

== ENCOUNTER 2021-11-16 14:42 | Inpatient (IN) | payer OTHER ==
[2021-11-16 16:54] VITALS: BMI 21.1
[2021-11-16] MEDS ORDERED: DICYCLOMINE HCL 10 MG CAPSULE PO PRN (18:14)
[2021-11-16] MEDS ORDERED: LOPERAMIDE HCL 2 MG CAPSULE PO PRN (18:14)
[2021-11-16] MEDS ORDERED: MAGNESIUM HYDROX 2400MG/30ML ORAL SUSPENSION 30 ML CUP PO PRN (18:14)
[2021-11-16] MEDS ORDERED: IBUPROFEN 400 MG TABLET (FP) PO PRN (18:14)
[2021-11-16] MEDS ORDERED: ONDANSETRON *ODT* 4 MG TABLET SL PRN (18:14)
[2021-11-16] MEDS ORDERED: BENZOCAINE/MENTHOL (CHLORASEPTIC ) LOZENGE MM PRN (18:14)
[2021-11-16] MEDS ORDERED: BISMUTH SUBSALICYLATE 524 MG/30 ML PO PRN (18:14)
[2021-11-16] MEDS ORDERED: MAGNESIUM CITRATE 300 ML BOTTLE PO PRN (18:14)
[2021-11-16] MEDS ORDERED: MAG HYDROX/AL HYDROX/SIMETH 30 ML UNIT-DOSE CUP PO PRN (18:14)
[2021-11-16] MEDS ORDERED: IBUPROFEN 600 MG TABLET (FP) PO PRN (18:14)
[2021-11-16] MEDS ORDERED: ACETAMINOPHEN 325 MG TABLET (FP) PO PRN ×2 (18:14)
[2021-11-16] MEDS: PRENATAL VITAMINS W/ FOLIC ACID TABLET (FP) PO SCH (20:23)
[2021-11-16] MEDS: THIAMINE HCL 100 MG TABLET (FP) PO SCH (21:24)
[2021-11-16] MEDS: METHOCARBAMOL 500 MG TABLET PO PRN (21:24)
[2021-11-16] MEDS: hydrOXYzine PAMOATE 25 MG CAPSULE (FP) PO SCH (21:24)
[2021-11-16] MEDS: MELATONIN 5 MG TABLETS PO SCH (21:24)
[2021-11-16] MEDS: NICOTINE 10 MG CARTRIDGE (INHALER) IH PRN (21:29)
[2021-11-17] MEDS: hydrOXYzine PAMOATE 25 MG CAPSULE (FP) PO SCH ×5 (05:48→22:26)
[2021-11-17] MEDS: METHOCARBAMOL 500 MG TABLET PO PRN ×3 (05:49→22:27)
[2021-11-17] MEDS: NICOTINE 10 MG CARTRIDGE (INHALER) IH PRN ×2 (05:50→22:28)
[2021-11-17] MEDS: PRENATAL VITAMINS W/ FOLIC ACID TABLET (FP) PO SCH (10:57)
[2021-11-17] MEDS ORDERED: NICOTINE POLACRILEX 2 MG GUM BUC PRN (11:07)
[2021-11-17 12:10] LABS: HEMATOCRIT 41.8 % (32.4-45.2); HEMOGLOBIN 13.6 GM/dL (10.7-15.3); MCH 24.1 pg (25.7-33.7); MCHC 32.6 g/dl (32.0-36.0); MEAN CELL VOLUME 73.9 fl (80-96); MEAN PLT VOLUME 8.6 fl (7.5-11.1); PLATELET COUNT 211 10^3/uL (134-434); RBC 5.65 M/mm3 (3.60-5.2); RDW 16.8 % (11.6-15.6); WHITE BLOOD COUNT 5.3 K/mm3 (4.0-10.0)
[2021-11-17 12:19] LABS: CALCIUM 9.7 mg/dL (8.5-10.1)
[2021-11-17 12:20] LABS: ALBUMIN 3.7 g/dl (3.4-5.0)
[2021-11-17 12:21] LABS: BLOOD UREA NITROGEN 15.8 mg/dL (7-18)
[2021-11-17 12:23] LABS: CREATININE 0.8 mg/dL (0.55-1.3)
[2021-11-17 14:09] VITALS: RESP 18
[2021-11-17] MEDS ORDERED: BUPRENORPHINE/NALOXONE 8 MG/2 MG FILM PACKET SL ONE (16:11)
[2021-11-17] MEDS: MELATONIN 5 MG TABLETS PO SCH (22:26)
[2021-11-17] MEDS: THIAMINE HCL 100 MG TABLET (FP) PO SCH (22:26)
[2021-11-18] MEDS: hydrOXYzine PAMOATE 25 MG CAPSULE (FP) PO SCH ×3 (06:04→14:10)
[2021-11-18] MEDS ORDERED: BUPRENORPHINE/NALOXONE 8 MG/2 MG FILM PACKET SL SCH (10:00)
[2021-11-18] MEDS: PRENATAL VITAMINS W/ FOLIC ACID TABLET (FP) PO SCH (10:17)
[2021-11-18 11:24] VITALS: TEMP 97.3
[2021-11-18 13:57] VITALS: BP 123/76; PULSE 58
== END 2021-11-18 14:35 | disposition other institution (70) | DRG 773 ==
LOC: YASAS 14:42 → UNDOADMIN 19:30 → Y6N 19:30 → UNDODISIN 11-18 14:35
PROVIDERS: ADMIT Allergy & Immunology; ATTEND Psychiatry & Neurology Pain Medicine
PROC: HZ2ZZZZ Detoxification Services for Substance Abuse Treatment (ICD-10-PCS; principal; 2021-11-16)
DX: F10.230 Alcohol dependence with withdrawal, uncomplicated (principal); F11.20 Opioid dependence, uncomplicated; F14.20 Cocaine dependence, uncomplicated; F17.213 Nicotine dependence, cigarettes, with withdrawal; I10 Essential (primary) hypertension; I25.2 Old myocardial infarction; K21.9 Gastro-esophageal reflux disease without esophagitis; I69.354 Hemiplegia and hemiparesis following cerebral infarction affecting left non-dominant side; D57.3 Sickle-cell trait; E11.9 Type 2 diabetes mellitus without complications; Z87.820 Personal history of traumatic brain injury; Z59.01 Sheltered homelessness; Z86.19 Personal history of other infectious and parasitic diseases
CPT/HCPCS: 36415; 80053; 81025; 83036; 85027; 86593; 86780; 87811; C9803-CS; U0003; U0005

== ENCOUNTER 2021-11-18 14:46 | Inpatient (IN) | payer OTHER ==
[2021-11-18] MEDS ORDERED: MAGNESIUM CITRATE 300 ML BOTTLE PO PRN (17:01)
[2021-11-18] MEDS ORDERED: LOPERAMIDE HCL 2 MG CAPSULE PO PRN (17:01)
[2021-11-18] MEDS ORDERED: MAGNESIUM HYDROX 2400MG/30ML ORAL SUSPENSION 30 ML CUP PO PRN (17:01)
[2021-11-18] MEDS ORDERED: P-EPHED 60MG/TRIPROLIDI 2.5MG TABLET PO PRN (17:01)
[2021-11-18] MEDS ORDERED: guaiFENesin 200 MG/10 ML 10 ML UNIT-DOSE CUPS PO PRN (17:01)
[2021-11-18] MEDS ORDERED: BENZOCAINE/MENTHOL (CHLORASEPTIC ) LOZENGE MM PRN (17:01)
[2021-11-18] MEDS ORDERED: MAG HYDROX/AL HYDROX/SIMETH 30 ML UNIT-DOSE CUP PO PRN (17:01)
[2021-11-18] MEDS ORDERED: IBUPROFEN 400 MG TABLET (FP) PO PRN (17:01)
[2021-11-18] MEDS: hydrOXYzine PAMOATE 25 MG CAPSULE (FP) PO SCH ×2 (19:08→21:03)
[2021-11-18] MEDS: THIAMINE HCL 100 MG TABLET (FP) PO SCH (21:03)
[2021-11-18] MEDS: MELATONIN 5 MG TABLETS PO SCH (21:03)
[2021-11-19] MEDS: hydrOXYzine PAMOATE 25 MG CAPSULE (FP) PO SCH ×5 (06:48→21:10)
[2021-11-19] MEDS: PRENATAL VITAMINS W/ FOLIC ACID TABLET (FP) PO SCH (09:42)
[2021-11-19] MEDS: NICOTINE 7 MG/24 HOURS TOPICAL PATCH TD SCH (09:43)
[2021-11-19] MEDS: ACETAMINOPHEN 325 MG TABLET (FP) PO PRN (09:44)
[2021-11-19] MEDS: NICOTINE POLACRILEX 2 MG GUM BUC PRN ×4 (09:44→21:12)
[2021-11-19 11:30] LABS: HIV INTERPRETATION NEGATIVE (NEGATIVE)
[2021-11-19] MEDS: NICOTINE 10 MG CARTRIDGE (INHALER) IH PRN ×2 (12:55→21:12)
[2021-11-19] MEDS: COLLOIDAL OATMEAL 1 BAR EACH TP PRN (13:55)
[2021-11-19] MEDS: MINERAL OIL/PETROLAT/WATER TOPICAL CREAM 113 GM JAR TP SCH (13:56)
[2021-11-19] MEDS: BUPRENORPHINE/NALOXONE 8 MG/2 MG FILM PACKET SL SCH (13:56)
[2021-11-19] MEDS: MELATONIN 5 MG TABLETS PO SCH (21:10)
[2021-11-19] MEDS: THIAMINE HCL 100 MG TABLET (FP) PO SCH (21:11)
[2021-11-20] MEDS: hydrOXYzine PAMOATE 25 MG CAPSULE (FP) PO SCH ×3 (07:08→14:17)
[2021-11-20] MEDS: NICOTINE POLACRILEX 2 MG GUM BUC PRN ×4 (07:09→20:44)
[2021-11-20] MEDS: PRENATAL VITAMINS W/ FOLIC ACID TABLET (FP) PO SCH (09:39)
[2021-11-20] MEDS: BUPRENORPHINE/NALOXONE 8 MG/2 MG FILM PACKET SL SCH (09:39)
[2021-11-20] MEDS: NICOTINE 7 MG/24 HOURS TOPICAL PATCH TD SCH (09:39)
[2021-11-20] MEDS: NICOTINE 10 MG CARTRIDGE (INHALER) IH PRN ×2 (09:40→20:44)
[2021-11-20] MEDS: MINERAL OIL/PETROLAT/WATER TOPICAL CREAM 113 GM JAR TP SCH (10:18)
[2021-11-20] MEDS: MELATONIN 5 MG TABLETS PO SCH (21:03)
[2021-11-20] MEDS: hydrOXYzine PAMOATE 25 MG CAPSULE (FP) PO PRN (21:03)
[2021-11-20] MEDS: THIAMINE HCL 100 MG TABLET (FP) PO SCH (21:03)
[2021-11-21] MEDS: PRENATAL VITAMINS W/ FOLIC ACID TABLET (FP) PO SCH (09:28)
[2021-11-21] MEDS: MINERAL OIL/PETROLAT/WATER TOPICAL CREAM 113 GM JAR TP SCH (09:28)
[2021-11-21] MEDS: BUPRENORPHINE/NALOXONE 8 MG/2 MG FILM PACKET SL SCH (09:28)
[2021-11-21] MEDS: NICOTINE POLACRILEX 2 MG GUM BUC PRN ×3 (09:29→21:10)
[2021-11-21] MEDS: NICOTINE 7 MG/24 HOURS TOPICAL PATCH TD SCH (09:29)
[2021-11-21] MEDS: NICOTINE 10 MG CARTRIDGE (INHALER) IH PRN ×2 (09:46→18:49)
[2021-11-21] MEDS ORDERED: ALBUTEROL SO4 HFA INHALER IH PRN (15:45)
[2021-11-21] MEDS: THIAMINE HCL 100 MG TABLET (FP) PO SCH (21:07)
[2021-11-21] MEDS: MELATONIN 5 MG TABLETS PO SCH (21:07)
[2021-11-21] MEDS: CARVEDILOL 6.25 MG TABLET (FP) PO SCH (21:48)
[2021-11-22] MEDS: HYDROCHLOROTHIAZIDE 12.5 MG CAPSULE (FP) PO SCH (09:38)
[2021-11-22] MEDS: amLODIPine BESYLATE 5 MG TABLET (FP) PO SCH (09:38)
[2021-11-22] MEDS: PRENATAL VITAMINS W/ FOLIC ACID TABLET (FP) PO SCH (09:38)
[2021-11-22] MEDS: NICOTINE 7 MG/24 HOURS TOPICAL PATCH TD SCH (09:38)
[2021-11-22] MEDS: MINERAL OIL/PETROLAT/WATER TOPICAL CREAM 113 GM JAR TP SCH (09:39)
[2021-11-22] MEDS: NICOTINE POLACRILEX 2 MG GUM BUC PRN ×3 (09:39→21:13)
[2021-11-22] MEDS: BUPRENORPHINE/NALOXONE 8 MG/2 MG FILM PACKET SL SCH (09:40)
[2021-11-22] MEDS: NICOTINE 10 MG CARTRIDGE (INHALER) IH PRN ×2 (09:40→21:11)
[2021-11-22] MEDS ORDERED: PATIENT'S OWN MEDICATION (NON-FORMULARY) (Hydrochlorothiazide [Hydrochlorothiazide] 12.5 M PO SCH (10:00)
[2021-11-22] MEDS: CARVEDILOL 6.25 MG TABLET (FP) PO SCH ×2 (12:04→21:12)
[2021-11-22] MEDS: DOCUSATE SODIUM 100 MG CAPSULE (FP) PO SCH ×2 (14:22→21:12)
[2021-11-22] MEDS: THIAMINE HCL 100 MG TABLET (FP) PO SCH (21:12)
[2021-11-22] MEDS: MELATONIN 5 MG TABLETS PO SCH (21:13)
[2021-11-23] MEDS: DOCUSATE SODIUM 100 MG CAPSULE (FP) PO SCH ×3 (07:18→21:06)
[2021-11-23] MEDS: NICOTINE POLACRILEX 2 MG GUM BUC PRN ×3 (07:19→21:07)
[2021-11-23] MEDS: NICOTINE 10 MG CARTRIDGE (INHALER) IH PRN ×2 (07:19→21:07)
[2021-11-23] MEDS: BUPRENORPHINE/NALOXONE 8 MG/2 MG FILM PACKET SL SCH (09:43)
[2021-11-23] MEDS: HYDROCHLOROTHIAZIDE 12.5 MG CAPSULE (FP) PO SCH (09:43)
[2021-11-23] MEDS: amLODIPine BESYLATE 5 MG TABLET (FP) PO SCH (09:43)
[2021-11-23] MEDS: CARVEDILOL 6.25 MG TABLET (FP) PO SCH ×2 (09:43→21:06)
[2021-11-23] MEDS: ACETAMINOPHEN 325 MG TABLET (FP) PO PRN (09:43)
[2021-11-23] MEDS: PRENATAL VITAMINS W/ FOLIC ACID TABLET (FP) PO SCH (09:44)
[2021-11-23] MEDS: NICOTINE 7 MG/24 HOURS TOPICAL PATCH TD SCH (09:44)
[2021-11-23] MEDS: MINERAL OIL/PETROLAT/WATER TOPICAL CREAM 113 GM JAR TP SCH (09:44)
[2021-11-23] MEDS: MELATONIN 5 MG TABLETS PO SCH (21:06)
[2021-11-23] MEDS: THIAMINE HCL 100 MG TABLET (FP) PO SCH (21:06)
[2021-11-23] MEDS: hydrOXYzine PAMOATE 25 MG CAPSULE (FP) PO PRN (21:08)
[2021-11-24] MEDS: DOCUSATE SODIUM 100 MG CAPSULE (FP) PO SCH ×3 (06:40→21:18)
[2021-11-24] MEDS: NICOTINE 10 MG CARTRIDGE (INHALER) IH PRN (06:40)
[2021-11-24] MEDS: HYDROCHLOROTHIAZIDE 12.5 MG CAPSULE (FP) PO SCH (09:59)
[2021-11-24] MEDS: CARVEDILOL 6.25 MG TABLET (FP) PO SCH ×2 (09:59→21:18)
[2021-11-24] MEDS: PRENATAL VITAMINS W/ FOLIC ACID TABLET (FP) PO SCH (09:59)
[2021-11-24] MEDS: amLODIPine BESYLATE 5 MG TABLET (FP) PO SCH (09:59)
[2021-11-24] MEDS: BUPRENORPHINE/NALOXONE 8 MG/2 MG FILM PACKET SL SCH (10:00)
[2021-11-24] MEDS: MINERAL OIL/PETROLAT/WATER TOPICAL CREAM 113 GM JAR TP SCH (10:00)
[2021-11-24] MEDS: NICOTINE 7 MG/24 HOURS TOPICAL PATCH TD SCH (10:00)
[2021-11-24] MEDS: NICOTINE POLACRILEX 2 MG GUM BUC PRN (14:36)
[2021-11-24] MEDS: THIAMINE HCL 100 MG TABLET (FP) PO SCH (21:17)
[2021-11-24] MEDS: MELATONIN 5 MG TABLETS PO SCH (21:17)
[2021-11-24] MEDS: hydrOXYzine PAMOATE 25 MG CAPSULE (FP) PO PRN (21:18)
[2021-11-25] MEDS: DOCUSATE SODIUM 100 MG CAPSULE (FP) PO SCH ×3 (06:38→21:03)
[2021-11-25] MEDS: NICOTINE POLACRILEX 2 MG GUM BUC PRN ×2 (06:39→18:58)
[2021-11-25] MEDS: HYDROCHLOROTHIAZIDE 12.5 MG CAPSULE (FP) PO SCH (09:45)
[2021-11-25] MEDS: PRENATAL VITAMINS W/ FOLIC ACID TABLET (FP) PO SCH (09:45)
[2021-11-25] MEDS: amLODIPine BESYLATE 5 MG TABLET (FP) PO SCH (09:45)
[2021-11-25] MEDS: CARVEDILOL 6.25 MG TABLET (FP) PO SCH ×2 (09:45→21:03)
[2021-11-25] MEDS: BUPRENORPHINE/NALOXONE 8 MG/2 MG FILM PACKET SL SCH (09:46)
[2021-11-25] MEDS: NICOTINE 7 MG/24 HOURS TOPICAL PATCH TD SCH (09:46)
[2021-11-25] MEDS: MINERAL OIL/PETROLAT/WATER TOPICAL CREAM 113 GM JAR TP SCH (09:46)
[2021-11-25] MEDS: COLLOIDAL OATMEAL 1 BAR EACH TP PRN (18:57)
[2021-11-25] MEDS: MELATONIN 5 MG TABLETS PO SCH (21:03)
[2021-11-25] MEDS: THIAMINE HCL 100 MG TABLET (FP) PO SCH (21:03)
[2021-11-25] MEDS: NICOTINE 10 MG CARTRIDGE (INHALER) IH PRN (21:04)
[2021-11-26] MEDS: DOCUSATE SODIUM 100 MG CAPSULE (FP) PO SCH ×3 (06:52→21:07)
[2021-11-26] MEDS: NICOTINE POLACRILEX 2 MG GUM BUC PRN ×4 (06:53→21:09)
[2021-11-26] MEDS: BUPRENORPHINE/NALOXONE 8 MG/2 MG FILM PACKET SL SCH (09:48)
[2021-11-26] MEDS: CARVEDILOL 6.25 MG TABLET (FP) PO SCH ×2 (09:49→21:07)
[2021-11-26] MEDS: amLODIPine BESYLATE 5 MG TABLET (FP) PO SCH (09:49)
[2021-11-26] MEDS: MINERAL OIL/PETROLAT/WATER TOPICAL CREAM 113 GM JAR TP SCH (09:50)
[2021-11-26] MEDS: PRENATAL VITAMINS W/ FOLIC ACID TABLET (FP) PO SCH (09:50)
[2021-11-26] MEDS: NICOTINE 7 MG/24 HOURS TOPICAL PATCH TD SCH (09:50)
[2021-11-26] MEDS: NICOTINE 10 MG CARTRIDGE (INHALER) IH PRN ×2 (09:51→17:45)
[2021-11-26] MEDS: HYDROCHLOROTHIAZIDE 12.5 MG CAPSULE (FP) PO SCH (09:51)
[2021-11-26] MEDS: THIAMINE HCL 100 MG TABLET (FP) PO SCH (21:07)
[2021-11-26] MEDS: MELATONIN 5 MG TABLETS PO SCH (21:07)
[2021-11-26] MEDS: hydrOXYzine PAMOATE 25 MG CAPSULE (FP) PO PRN (21:08)
[2021-11-27] MEDS: DOCUSATE SODIUM 100 MG CAPSULE (FP) PO SCH ×3 (06:29→21:38)
[2021-11-27] MEDS: NICOTINE 10 MG CARTRIDGE (INHALER) IH PRN ×2 (06:29→21:38)
[2021-11-27] MEDS: NICOTINE POLACRILEX 2 MG GUM BUC PRN ×4 (06:29→21:38)
[2021-11-27] MEDS: BUPRENORPHINE/NALOXONE 8 MG/2 MG FILM PACKET SL SCH (09:40)
[2021-11-27] MEDS: NICOTINE 7 MG/24 HOURS TOPICAL PATCH TD SCH (09:40)
[2021-11-27] MEDS: PRENATAL VITAMINS W/ FOLIC ACID TABLET (FP) PO SCH (09:40)
[2021-11-27] MEDS: MINERAL OIL/PETROLAT/WATER TOPICAL CREAM 113 GM JAR TP SCH (09:41)
[2021-11-27] MEDS: HYDROCHLOROTHIAZIDE 12.5 MG CAPSULE (FP) PO SCH (09:42)
[2021-11-27] MEDS: amLODIPine BESYLATE 5 MG TABLET (FP) PO SCH (12:20)
[2021-11-27] MEDS: CARVEDILOL 6.25 MG TABLET (FP) PO SCH ×2 (12:20→21:38)
[2021-11-27] MEDS: THIAMINE HCL 100 MG TABLET (FP) PO SCH (21:38)
[2021-11-27] MEDS: hydrOXYzine PAMOATE 25 MG CAPSULE (FP) PO PRN (21:39)
[2021-11-27] MEDS: MELATONIN 5 MG TABLETS PO SCH (21:39)
[2021-11-28] MEDS: NICOTINE POLACRILEX 2 MG GUM BUC PRN ×5 (06:42→21:37)
[2021-11-28] MEDS: DOCUSATE SODIUM 100 MG CAPSULE (FP) PO SCH ×3 (06:43→21:35)
[2021-11-28] MEDS: HYDROCHLOROTHIAZIDE 12.5 MG CAPSULE (FP) PO SCH (10:23)
[2021-11-28] MEDS: CARVEDILOL 6.25 MG TABLET (FP) PO SCH ×2 (10:23→21:35)
[2021-11-28] MEDS: BUPRENORPHINE/NALOXONE 8 MG/2 MG FILM PACKET SL SCH (10:24)
[2021-11-28] MEDS: NICOTINE 7 MG/24 HOURS TOPICAL PATCH TD SCH (10:24)
[2021-11-28] MEDS: amLODIPine BESYLATE 5 MG TABLET (FP) PO SCH (10:24)
[2021-11-28] MEDS: MINERAL OIL/PETROLAT/WATER TOPICAL CREAM 113 GM JAR TP SCH (10:24)
[2021-11-28] MEDS: PRENATAL VITAMINS W/ FOLIC ACID TABLET (FP) PO SCH (10:24)
[2021-11-28] MEDS: NICOTINE 10 MG CARTRIDGE (INHALER) IH PRN ×2 (14:29→19:00)
[2021-11-28] MEDS: METHOCARBAMOL 500 MG TABLET PO PRN ×2 (15:50→21:35)
[2021-11-28] MEDS: THIAMINE HCL 100 MG TABLET (FP) PO SCH (21:35)
[2021-11-28] MEDS: MELATONIN 5 MG TABLETS PO SCH (21:35)
[2021-11-29] MEDS: NICOTINE 10 MG CARTRIDGE (INHALER) IH PRN (06:25)
[2021-11-29] MEDS: DOCUSATE SODIUM 100 MG CAPSULE (FP) PO SCH ×3 (06:26→21:33)
[2021-11-29] MEDS: NICOTINE POLACRILEX 2 MG GUM BUC PRN ×2 (06:27→10:50)
[2021-11-29] MEDS: BUPRENORPHINE/NALOXONE 8 MG/2 MG FILM PACKET SL SCH (10:46)
[2021-11-29] MEDS: amLODIPine BESYLATE 5 MG TABLET (FP) PO SCH (10:46)
[2021-11-29] MEDS: HYDROCHLOROTHIAZIDE 12.5 MG CAPSULE (FP) PO SCH (10:46)
[2021-11-29] MEDS: CARVEDILOL 6.25 MG TABLET (FP) PO SCH ×2 (10:46→21:33)
[2021-11-29] MEDS: MINERAL OIL/PETROLAT/WATER TOPICAL CREAM 113 GM JAR TP SCH (10:47)
[2021-11-29] MEDS: NICOTINE 7 MG/24 HOURS TOPICAL PATCH TD SCH (10:47)
[2021-11-29] MEDS: PRENATAL VITAMINS W/ FOLIC ACID TABLET (FP) PO SCH (10:47)
[2021-11-29] MEDS: VITAMINS A AND D TOPICAL OINTMENT 60 GM TUBE TP SCH (16:05)
[2021-11-29] MEDS: THIAMINE HCL 100 MG TABLET (FP) PO SCH (21:33)
[2021-11-29] MEDS: METHOCARBAMOL 500 MG TABLET PO PRN (21:33)
[2021-11-29] MEDS: MELATONIN 5 MG TABLETS PO SCH (21:33)
[2021-11-30] MEDS: NICOTINE 10 MG CARTRIDGE (INHALER) IH PRN ×3 (06:42→21:32)
[2021-11-30] MEDS: DOCUSATE SODIUM 100 MG CAPSULE (FP) PO SCH ×3 (06:42→21:30)
[2021-11-30] MEDS: HYDROCHLOROTHIAZIDE 12.5 MG CAPSULE (FP) PO SCH (10:13)
[2021-11-30] MEDS: amLODIPine BESYLATE 5 MG TABLET (FP) PO SCH (10:13)
[2021-11-30] MEDS: PRENATAL VITAMINS W/ FOLIC ACID TABLET (FP) PO SCH (10:13)
[2021-11-30] MEDS: BUPRENORPHINE/NALOXONE 8 MG/2 MG FILM PACKET SL SCH (10:14)
[2021-11-30] MEDS: CARVEDILOL 6.25 MG TABLET (FP) PO SCH ×2 (10:14→21:48)
[2021-11-30] MEDS: NICOTINE 7 MG/24 HOURS TOPICAL PATCH TD SCH (10:14)
[2021-11-30] MEDS: VITAMINS A AND D TOPICAL OINTMENT 60 GM TUBE TP SCH (10:15)
[2021-11-30] MEDS: MINERAL OIL/PETROLAT/WATER TOPICAL CREAM 113 GM JAR TP SCH (10:16)
[2021-11-30] MEDS: NICOTINE POLACRILEX 2 MG GUM BUC PRN ×3 (11:09→21:34)
[2021-11-30] MEDS: MELATONIN 5 MG TABLETS PO SCH (21:29)
[2021-11-30] MEDS: THIAMINE HCL 100 MG TABLET (FP) PO SCH (21:30)
[2021-11-30] MEDS: METHOCARBAMOL 500 MG TABLET PO PRN (21:33)
[2021-12-01] MEDS: DOCUSATE SODIUM 100 MG CAPSULE (FP) PO SCH ×3 (06:39→21:36)
[2021-12-01] MEDS: NICOTINE 10 MG CARTRIDGE (INHALER) IH PRN ×3 (06:40→21:37)
[2021-12-01] MEDS: NICOTINE POLACRILEX 2 MG GUM BUC PRN ×4 (06:41→21:37)
[2021-12-01] MEDS: MINERAL OIL/PETROLAT/WATER TOPICAL CREAM 113 GM JAR TP SCH (10:19)
[2021-12-01] MEDS: CARVEDILOL 6.25 MG TABLET (FP) PO SCH ×2 (10:19→21:36)
[2021-12-01] MEDS: BUPRENORPHINE/NALOXONE 8 MG/2 MG FILM PACKET SL SCH (10:20)
[2021-12-01] MEDS: PRENATAL VITAMINS W/ FOLIC ACID TABLET (FP) PO SCH (10:20)
[2021-12-01] MEDS: NICOTINE 7 MG/24 HOURS TOPICAL PATCH TD SCH (10:20)
[2021-12-01] MEDS: amLODIPine BESYLATE 5 MG TABLET (FP) PO SCH (10:20)
[2021-12-01] MEDS: HYDROCHLOROTHIAZIDE 12.5 MG CAPSULE (FP) PO SCH (10:20)
[2021-12-01] MEDS: VITAMINS A AND D TOPICAL OINTMENT 60 GM TUBE TP SCH (10:20)
[2021-12-01] MEDS: MELATONIN 5 MG TABLETS PO SCH (21:35)
[2021-12-01] MEDS: METHOCARBAMOL 500 MG TABLET PO PRN (21:36)
[2021-12-01] MEDS: THIAMINE HCL 100 MG TABLET (FP) PO SCH (21:36)
[2021-12-02] MEDS: DOCUSATE SODIUM 100 MG CAPSULE (FP) PO SCH ×3 (06:23→21:29)
[2021-12-02] MEDS: NICOTINE POLACRILEX 2 MG GUM BUC PRN ×3 (06:25→20:08)
[2021-12-02] MEDS: BUPRENORPHINE/NALOXONE 8 MG/2 MG FILM PACKET SL SCH (09:27)
[2021-12-02] MEDS: ACETAMINOPHEN 325 MG TABLET (FP) PO PRN (09:28)
[2021-12-02] MEDS: PRENATAL VITAMINS W/ FOLIC ACID TABLET (FP) PO SCH (09:28)
[2021-12-02] MEDS: MINERAL OIL/PETROLAT/WATER TOPICAL CREAM 113 GM JAR TP SCH (09:31)
[2021-12-02] MEDS: VITAMINS A AND D TOPICAL OINTMENT 60 GM TUBE TP SCH (09:31)
[2021-12-02] MEDS: NICOTINE 7 MG/24 HOURS TOPICAL PATCH TD SCH (09:31)
[2021-12-02] MEDS: amLODIPine BESYLATE 5 MG TABLET (FP) PO SCH (09:32)
[2021-12-02] MEDS: HYDROCHLOROTHIAZIDE 12.5 MG CAPSULE (FP) PO SCH (11:41)
[2021-12-02] MEDS: CARVEDILOL 6.25 MG TABLET (FP) PO SCH ×2 (11:41→21:29)
[2021-12-02] MEDS: NICOTINE 10 MG CARTRIDGE (INHALER) IH PRN (20:07)
[2021-12-02] MEDS: MELATONIN 5 MG TABLETS PO SCH (21:30)
[2021-12-02] MEDS: THIAMINE HCL 100 MG TABLET (FP) PO SCH (21:30)
[2021-12-03] MEDS: DOCUSATE SODIUM 100 MG CAPSULE (FP) PO SCH ×3 (06:38→21:39)
[2021-12-03] MEDS: NICOTINE POLACRILEX 2 MG GUM BUC PRN ×4 (06:39→20:34)
[2021-12-03] MEDS: PRENATAL VITAMINS W/ FOLIC ACID TABLET (FP) PO SCH (10:36)
[2021-12-03] MEDS: CARVEDILOL 6.25 MG TABLET (FP) PO SCH ×2 (10:37→21:39)
[2021-12-03] MEDS: amLODIPine BESYLATE 5 MG TABLET (FP) PO SCH (10:37)
[2021-12-03] MEDS: HYDROCHLOROTHIAZIDE 12.5 MG CAPSULE (FP) PO SCH (10:37)
[2021-12-03] MEDS: NICOTINE 7 MG/24 HOURS TOPICAL PATCH TD SCH (10:37)
[2021-12-03] MEDS: BUPRENORPHINE/NALOXONE 8 MG/2 MG FILM PACKET SL SCH (10:38)
[2021-12-03] MEDS: MINERAL OIL/PETROLAT/WATER TOPICAL CREAM 113 GM JAR TP SCH (10:38)
[2021-12-03] MEDS: VITAMINS A AND D TOPICAL OINTMENT 60 GM TUBE TP SCH (10:38)
[2021-12-03] MEDS: NICOTINE 10 MG CARTRIDGE (INHALER) IH PRN ×2 (10:39→21:41)
[2021-12-03] MEDS: COLLOIDAL OATMEAL 1 BAR EACH TP PRN (11:17)
[2021-12-03] MEDS: THIAMINE HCL 100 MG TABLET (FP) PO SCH (21:39)
[2021-12-03] MEDS: MELATONIN 5 MG TABLETS PO SCH (21:39)
[2021-12-03] MEDS: METHOCARBAMOL 500 MG TABLET PO PRN (21:40)
[2021-12-04] MEDS: DOCUSATE SODIUM 100 MG CAPSULE (FP) PO SCH ×3 (07:14→21:27)
[2021-12-04] MEDS: BUPRENORPHINE/NALOXONE 8 MG/2 MG FILM PACKET SL SCH (10:00)
[2021-12-04] MEDS: PRENATAL VITAMINS W/ FOLIC ACID TABLET (FP) PO SCH (10:00)
[2021-12-04] MEDS: amLODIPine BESYLATE 5 MG TABLET (FP) PO SCH (10:00)
[2021-12-04] MEDS: HYDROCHLOROTHIAZIDE 12.5 MG CAPSULE (FP) PO SCH (10:00)
[2021-12-04] MEDS: MINERAL OIL/PETROLAT/WATER TOPICAL CREAM 113 GM JAR TP SCH (10:01)
[2021-12-04] MEDS: NICOTINE 10 MG CARTRIDGE (INHALER) IH PRN (10:01)
[2021-12-04] MEDS: NICOTINE POLACRILEX 2 MG GUM BUC PRN ×3 (10:01→21:29)
[2021-12-04] MEDS: NICOTINE 7 MG/24 HOURS TOPICAL PATCH TD SCH (10:01)
[2021-12-04] MEDS: CARVEDILOL 6.25 MG TABLET (FP) PO SCH ×2 (10:01→21:27)
[2021-12-04] MEDS: VITAMINS A AND D TOPICAL OINTMENT 60 GM TUBE TP SCH (10:03)
[2021-12-04] MEDS: MELATONIN 5 MG TABLETS PO SCH (21:26)
[2021-12-04] MEDS: METHOCARBAMOL 500 MG TABLET PO PRN (21:27)
[2021-12-04] MEDS: hydrOXYzine PAMOATE 25 MG CAPSULE (FP) PO PRN (21:27)
[2021-12-04] MEDS: THIAMINE HCL 100 MG TABLET (FP) PO SCH (21:27)
[2021-12-04 22:38] VITALS: RESP 18
[2021-12-05] MEDS: DOCUSATE SODIUM 100 MG CAPSULE (FP) PO SCH ×3 (06:42→21:25)
[2021-12-05] MEDS: NICOTINE POLACRILEX 2 MG GUM BUC PRN ×3 (06:43→21:24)
[2021-12-05] MEDS: PRENATAL VITAMINS W/ FOLIC ACID TABLET (FP) PO SCH (10:04)
[2021-12-05] MEDS: BUPRENORPHINE/NALOXONE 8 MG/2 MG FILM PACKET SL SCH (10:05)
[2021-12-05] MEDS: amLODIPine BESYLATE 5 MG TABLET (FP) PO SCH (10:05)
[2021-12-05] MEDS: HYDROCHLOROTHIAZIDE 12.5 MG CAPSULE (FP) PO SCH (10:05)
[2021-12-05] MEDS: CARVEDILOL 6.25 MG TABLET (FP) PO SCH ×2 (10:05→21:25)
[2021-12-05] MEDS: VITAMINS A AND D TOPICAL OINTMENT 60 GM TUBE TP SCH (10:06)
[2021-12-05] MEDS: NICOTINE 7 MG/24 HOURS TOPICAL PATCH TD SCH (10:06)
[2021-12-05] MEDS: MINERAL OIL/PETROLAT/WATER TOPICAL CREAM 113 GM JAR TP SCH (10:07)
[2021-12-05] MEDS: NICOTINE 10 MG CARTRIDGE (INHALER) IH PRN ×2 (11:03→21:24)
[2021-12-05] MEDS ORDERED: TUBERCULIN PPD 5 TU/0.1ML VIAL ID ONE (15:40)
[2021-12-05] MEDS: MELATONIN 5 MG TABLETS PO SCH (21:25)
[2021-12-05] MEDS: THIAMINE HCL 100 MG TABLET (FP) PO SCH (21:25)
[2021-12-05] MEDS: METHOCARBAMOL 500 MG TABLET PO PRN (21:25)
[2021-12-05] MEDS: hydrOXYzine PAMOATE 25 MG CAPSULE (FP) PO PRN (21:25)
[2021-12-06] MEDS: DOCUSATE SODIUM 100 MG CAPSULE (FP) PO SCH ×3 (06:37→21:18)
[2021-12-06] MEDS: NICOTINE POLACRILEX 2 MG GUM BUC PRN ×5 (06:37→21:20)
[2021-12-06] MEDS: PRENATAL VITAMINS W/ FOLIC ACID TABLET (FP) PO SCH (10:24)
[2021-12-06] MEDS: CARVEDILOL 6.25 MG TABLET (FP) PO SCH ×2 (10:24→21:18)
[2021-12-06] MEDS: HYDROCHLOROTHIAZIDE 12.5 MG CAPSULE (FP) PO SCH (10:25)
[2021-12-06] MEDS: NICOTINE 7 MG/24 HOURS TOPICAL PATCH TD SCH (10:25)
[2021-12-06] MEDS: BUPRENORPHINE/NALOXONE 8 MG/2 MG FILM PACKET SL SCH (10:25)
[2021-12-06] MEDS: MINERAL OIL/PETROLAT/WATER TOPICAL CREAM 113 GM JAR TP SCH (10:25)
[2021-12-06] MEDS: amLODIPine BESYLATE 5 MG TABLET (FP) PO SCH (10:25)
[2021-12-06] MEDS: VITAMINS A AND D TOPICAL OINTMENT 60 GM TUBE TP SCH (10:26)
[2021-12-06] MEDS: MELATONIN 5 MG TABLETS PO SCH (21:18)
[2021-12-06] MEDS: THIAMINE HCL 100 MG TABLET (FP) PO SCH (21:18)
[2021-12-06] MEDS: METHOCARBAMOL 500 MG TABLET PO PRN (21:19)
[2021-12-07] MEDS: NICOTINE 10 MG CARTRIDGE (INHALER) IH PRN ×2 (06:33→16:24)
[2021-12-07] MEDS: NICOTINE POLACRILEX 2 MG GUM BUC PRN ×4 (06:33→20:34)
[2021-12-07] MEDS: DOCUSATE SODIUM 100 MG CAPSULE (FP) PO SCH ×3 (06:33→21:07)
[2021-12-07] MEDS: PRENATAL VITAMINS W/ FOLIC ACID TABLET (FP) PO SCH (09:55)
[2021-12-07] MEDS: BUPRENORPHINE/NALOXONE 8 MG/2 MG FILM PACKET SL SCH (09:56)
[2021-12-07] MEDS: amLODIPine BESYLATE 5 MG TABLET (FP) PO SCH (09:56)
[2021-12-07] MEDS: NICOTINE 7 MG/24 HOURS TOPICAL PATCH TD SCH (09:56)
[2021-12-07] MEDS: HYDROCHLOROTHIAZIDE 12.5 MG CAPSULE (FP) PO SCH (09:56)
[2021-12-07] MEDS: VITAMINS A AND D TOPICAL OINTMENT 60 GM TUBE TP SCH (09:57)
[2021-12-07] MEDS: MINERAL OIL/PETROLAT/WATER TOPICAL CREAM 113 GM JAR TP SCH (09:58)
[2021-12-07] MEDS: CARVEDILOL 6.25 MG TABLET (FP) PO SCH ×2 (10:00→21:07)
[2021-12-07] MEDS: hydrOXYzine PAMOATE 25 MG CAPSULE (FP) PO PRN (21:08)
[2021-12-07] MEDS: MELATONIN 5 MG TABLETS PO SCH (21:08)
[2021-12-07] MEDS: THIAMINE HCL 100 MG TABLET (FP) PO SCH (21:08)
[2021-12-08] MEDS: DOCUSATE SODIUM 100 MG CAPSULE (FP) PO SCH ×3 (06:36→21:22)
[2021-12-08] MEDS: NICOTINE POLACRILEX 2 MG GUM BUC PRN ×3 (06:37→21:24)
[2021-12-08] MEDS: HYDROCHLOROTHIAZIDE 12.5 MG CAPSULE (FP) PO SCH (10:26)
[2021-12-08] MEDS: NICOTINE 7 MG/24 HOURS TOPICAL PATCH TD SCH (10:26)
[2021-12-08] MEDS: BUPRENORPHINE/NALOXONE 8 MG/2 MG FILM PACKET SL SCH (10:26)
[2021-12-08] MEDS: PRENATAL VITAMINS W/ FOLIC ACID TABLET (FP) PO SCH (10:26)
[2021-12-08] MEDS: MINERAL OIL/PETROLAT/WATER TOPICAL CREAM 113 GM JAR TP SCH (10:26)
[2021-12-08] MEDS: amLODIPine BESYLATE 5 MG TABLET (FP) PO SCH (10:26)
[2021-12-08] MEDS: CARVEDILOL 6.25 MG TABLET (FP) PO SCH ×2 (10:27→22:32)
[2021-12-08] MEDS: VITAMINS A AND D TOPICAL OINTMENT 60 GM TUBE TP SCH (10:27)
[2021-12-08] MEDS: NICOTINE 10 MG CARTRIDGE (INHALER) IH PRN ×2 (10:29→15:30)
[2021-12-08] MEDS: THIAMINE HCL 100 MG TABLET (FP) PO SCH (21:22)
[2021-12-08] MEDS: hydrOXYzine PAMOATE 25 MG CAPSULE (FP) PO PRN (21:22)
[2021-12-08] MEDS: MELATONIN 5 MG TABLETS PO SCH (21:22)
[2021-12-09] MEDS: NICOTINE 10 MG CARTRIDGE (INHALER) IH PRN (06:48)
[2021-12-09] MEDS: DOCUSATE SODIUM 100 MG CAPSULE (FP) PO SCH ×3 (06:49→21:35)
[2021-12-09] MEDS: CARVEDILOL 6.25 MG TABLET (FP) PO SCH ×2 (10:16→21:35)
[2021-12-09] MEDS: PRENATAL VITAMINS W/ FOLIC ACID TABLET (FP) PO SCH (10:16)
[2021-12-09] MEDS: BUPRENORPHINE/NALOXONE 8 MG/2 MG FILM PACKET SL SCH (10:17)
[2021-12-09] MEDS: NICOTINE 7 MG/24 HOURS TOPICAL PATCH TD SCH (10:17)
[2021-12-09] MEDS: VITAMINS A AND D TOPICAL OINTMENT 60 GM TUBE TP SCH (10:17)
[2021-12-09] MEDS: HYDROCHLOROTHIAZIDE 12.5 MG CAPSULE (FP) PO SCH (10:17)
[2021-12-09] MEDS: MINERAL OIL/PETROLAT/WATER TOPICAL CREAM 113 GM JAR TP SCH (10:17)
[2021-12-09] MEDS: amLODIPine BESYLATE 5 MG TABLET (FP) PO SCH (10:17)
[2021-12-09] MEDS: NICOTINE POLACRILEX 2 MG GUM BUC PRN ×2 (10:18→21:37)
[2021-12-09] MEDS: COLLOIDAL OATMEAL 1 BAR EACH TP PRN (19:07)
[2021-12-09] MEDS: hydrOXYzine PAMOATE 25 MG CAPSULE (FP) PO PRN (21:35)
[2021-12-09] MEDS: MELATONIN 5 MG TABLETS PO SCH (21:35)
[2021-12-09] MEDS: THIAMINE HCL 100 MG TABLET (FP) PO SCH (21:35)
[2021-12-10] MEDS: DOCUSATE SODIUM 100 MG CAPSULE (FP) PO SCH ×3 (06:24→21:29)
[2021-12-10] MEDS: NICOTINE POLACRILEX 2 MG GUM BUC PRN ×4 (06:25→21:29)
[2021-12-10] MEDS: CARVEDILOL 6.25 MG TABLET (FP) PO SCH ×2 (10:12→21:29)
[2021-12-10] MEDS: BUPRENORPHINE/NALOXONE 8 MG/2 MG FILM PACKET SL SCH (10:12)
[2021-12-10] MEDS: MINERAL OIL/PETROLAT/WATER TOPICAL CREAM 113 GM JAR TP SCH (10:13)
[2021-12-10] MEDS: HYDROCHLOROTHIAZIDE 12.5 MG CAPSULE (FP) PO SCH (10:14)
[2021-12-10] MEDS: PRENATAL VITAMINS W/ FOLIC ACID TABLET (FP) PO SCH (10:14)
[2021-12-10] MEDS: amLODIPine BESYLATE 5 MG TABLET (FP) PO SCH (10:14)
[2021-12-10] MEDS: NICOTINE 7 MG/24 HOURS TOPICAL PATCH TD SCH (10:14)
[2021-12-10] MEDS: VITAMINS A AND D TOPICAL OINTMENT 60 GM TUBE TP SCH (10:15)
[2021-12-10] MEDS: NICOTINE 10 MG CARTRIDGE (INHALER) IH PRN ×2 (14:04→21:29)
[2021-12-10] MEDS: THIAMINE HCL 100 MG TABLET (FP) PO SCH (21:29)
[2021-12-10] MEDS: MELATONIN 5 MG TABLETS PO SCH (21:29)
[2021-12-11] MEDS: DOCUSATE SODIUM 100 MG CAPSULE (FP) PO SCH ×3 (06:50→21:23)
[2021-12-11] MEDS: NICOTINE 7 MG/24 HOURS TOPICAL PATCH TD SCH (10:28)
[2021-12-11] MEDS: PRENATAL VITAMINS W/ FOLIC ACID TABLET (FP) PO SCH (10:28)
[2021-12-11] MEDS: amLODIPine BESYLATE 5 MG TABLET (FP) PO SCH (10:29)
[2021-12-11] MEDS: CARVEDILOL 6.25 MG TABLET (FP) PO SCH ×2 (10:29→21:23)
[2021-12-11] MEDS: MINERAL OIL/PETROLAT/WATER TOPICAL CREAM 113 GM JAR TP SCH (10:30)
[2021-12-11] MEDS: BUPRENORPHINE/NALOXONE 8 MG/2 MG FILM PACKET SL SCH (10:30)
[2021-12-11] MEDS: HYDROCHLOROTHIAZIDE 12.5 MG CAPSULE (FP) PO SCH (10:30)
[2021-12-11] MEDS: VITAMINS A AND D TOPICAL OINTMENT 60 GM TUBE TP SCH (10:31)
[2021-12-11] MEDS: NICOTINE POLACRILEX 2 MG GUM BUC PRN ×2 (14:42→21:24)
[2021-12-11] MEDS: THIAMINE HCL 100 MG TABLET (FP) PO SCH (21:23)
[2021-12-11] MEDS: MELATONIN 5 MG TABLETS PO SCH (21:23)
[2021-12-11] MEDS: hydrOXYzine PAMOATE 25 MG CAPSULE (FP) PO PRN (21:24)
[2021-12-12] MEDS: NICOTINE POLACRILEX 2 MG GUM BUC PRN ×3 (06:57→19:57)
[2021-12-12] MEDS: DOCUSATE SODIUM 100 MG CAPSULE (FP) PO SCH ×3 (06:57→21:26)
[2021-12-12] MEDS: NICOTINE 7 MG/24 HOURS TOPICAL PATCH TD SCH (09:56)
[2021-12-12] MEDS: BUPRENORPHINE/NALOXONE 8 MG/2 MG FILM PACKET SL SCH (09:58)
[2021-12-12] MEDS: CARVEDILOL 6.25 MG TABLET (FP) PO SCH ×2 (09:58→21:26)
[2021-12-12] MEDS: PRENATAL VITAMINS W/ FOLIC ACID TABLET (FP) PO SCH (09:58)
[2021-12-12] MEDS: VITAMINS A AND D TOPICAL OINTMENT 60 GM TUBE TP SCH (09:58)
[2021-12-12] MEDS: amLODIPine BESYLATE 5 MG TABLET (FP) PO SCH (09:58)
[2021-12-12] MEDS: HYDROCHLOROTHIAZIDE 12.5 MG CAPSULE (FP) PO SCH (09:58)
[2021-12-12] MEDS: MINERAL OIL/PETROLAT/WATER TOPICAL CREAM 113 GM JAR TP SCH (09:59)
[2021-12-12] MEDS: NICOTINE 10 MG CARTRIDGE (INHALER) IH PRN ×2 (14:29→19:56)
[2021-12-12] MEDS: hydrOXYzine PAMOATE 25 MG CAPSULE (FP) PO PRN (21:26)
[2021-12-12] MEDS: MELATONIN 5 MG TABLETS PO SCH (21:26)
[2021-12-12] MEDS: THIAMINE HCL 100 MG TABLET (FP) PO SCH (21:26)
[2021-12-13] MEDS: NICOTINE POLACRILEX 2 MG GUM BUC PRN ×3 (06:44→12:49)
[2021-12-13] MEDS: DOCUSATE SODIUM 100 MG CAPSULE (FP) PO SCH ×2 (06:44→14:15)
[2021-12-13 07:33] VITALS: BP 119/76; PULSE 55; TEMP 97.1
[2021-12-13] MEDS: CARVEDILOL 6.25 MG TABLET (FP) PO SCH (09:56)
[2021-12-13] MEDS: MINERAL OIL/PETROLAT/WATER TOPICAL CREAM 113 GM JAR TP SCH (09:56)
[2021-12-13] MEDS: PRENATAL VITAMINS W/ FOLIC ACID TABLET (FP) PO SCH (09:57)
[2021-12-13] MEDS: amLODIPine BESYLATE 5 MG TABLET (FP) PO SCH (09:57)
[2021-12-13] MEDS: NICOTINE 7 MG/24 HOURS TOPICAL PATCH TD SCH (09:57)
[2021-12-13] MEDS: HYDROCHLOROTHIAZIDE 12.5 MG CAPSULE (FP) PO SCH (09:57)
[2021-12-13] MEDS: BUPRENORPHINE/NALOXONE 8 MG/2 MG FILM PACKET SL SCH (09:58)
[2021-12-13] MEDS: VITAMINS A AND D TOPICAL OINTMENT 60 GM TUBE TP SCH (09:58)
[2021-12-13] MEDS: COLLOIDAL OATMEAL 1 BAR EACH TP PRN (10:29)
== END 2021-12-13 14:30 | disposition home or self-care (01) | DRG 772 ==
LOC: YASAS 14:46 → Y5N 14:48
PROVIDERS: ADMIT Allergy & Immunology; ATTEND Psychiatry & Neurology Pain Medicine
PROC: HZ42ZZZ Group Counseling for Substance Abuse Treatment, Cognitive-Behavioral (ICD-10-PCS; principal; 2021-11-18)
DX: F10.20 Alcohol dependence, uncomplicated (principal); F11.20 Opioid dependence, uncomplicated; F14.20 Cocaine dependence, uncomplicated; F17.210 Nicotine dependence, cigarettes, uncomplicated; I10 Essential (primary) hypertension; J44.9 Chronic obstructive pulmonary disease, unspecified; K21.9 Gastro-esophageal reflux disease without esophagitis; Z86.19 Personal history of other infectious and parasitic diseases; Z59.00 Homelessness unspecified
CPT/HCPCS: 36415; 87389